=== PATIENT | male | born 1940 | race African-American/Black ===

== ENCOUNTER 2019-07-22 09:15 | Day surgery (SDC) | payer BC, MEDICARE ==
[2019-07-18 11:25] LABS: Basophils # (auto) 0 10 ^3/uL (0-0.2); Basophils % (auto) 0.7 % (0.0-2.0); Eosinophils # (auto) 0.1 10 ^3/uL (0-0.8); Eosinophils % (auto) 1.7 % (0.0-7.0); Hemoglobin 13.7 g/dL (13.5-17.5); Lymphocytes # (auto) 1.3 10 ^3/uL (0.4-5.4); Lymphocytes % (auto) 31.2 % (10.0-50.0); Mean Corpuscular Hemoglobin 31.2 pg (28.0-32.0); Mean Corpuscular Hgb Conc. 32.6 g/dL (32.0-36.0); Mean Corpuscular Volume 95.5 fL (80.0-100.0); Monocytes # (auto) 0.3 10 ^3/uL (0-1.3); Monocytes % (auto) 7.3 % (0.0-12.0); Neutrophils # (auto) 2.4 10 ^3/uL (1.6-8.6); Neutrophils % (auto) 59.1 % (37.0-80.0); Nucleated Red Blood Cells % 0.1 %; Platelet Count (auto) 186 10^3/uL (140-450); Red Cell Distribution Width 12.9 % (11.8-14.3); White Blood Cell 4.1 10^3/uL (4.4-10.8)
[2019-07-18 11:43] LABS: INR 3.03 (0.9-1.15)
[~2019-07-22] VITALS: Ht 175.3 cm; Wt 133.8 kg
[~2019-07-22 09:15] MED LIST: ACET-1156 PO; ATOR10TA52 PO; FURO40TA4 PO; LOSA25TA38 PO; SPIR25TA8 PO; WARF5TAB71 PO
[2019-07-22] MEDS ORDERED: SODIUM CHLORIDE LOCK 10 ML ONE (09:22)
[2019-07-22] MEDS ORDERED: diphenhdrAMINE HCL 50 MG/1 ML VL ONE (09:23)
[2019-07-22] MEDS ORDERED: LIDOCAINE HCL 2% TOP JELLY 5ML TOP ONE (10:51)
[2019-07-22] MEDS: fentaNYL CITRATE 100 MCG/2 ML VL ONE ×2 (10:58→11:02)
[2019-07-22] MEDS: MIDAZOLAM HCL 5 MG/ML-1ML VIAL ONE ×6 (10:58→11:11)
[2019-07-22 10:59] LABS: INR 1.44 (0.9-1.15); Partial Thromboplastin Time 27.1 sec (23.64-32.05)
[2019-07-22 12:09] VITALS: BP 156/95
== END 2019-07-22 12:40 | disposition home or self-care (01) ==
LOC: GI 09:15
PROVIDERS: ATTEND Internal Medicine Gastroenterology
DX: K62.89 Other specified diseases of anus and rectum (principal); K63.5 Polyp of colon; K60.2 Anal fissure, unspecified; J45.909 Unspecified asthma, uncomplicated; E66.9 Obesity, unspecified; Z68.43 Body mass index [BMI] 50.0-59.9, adult; Z98.890 Other specified postprocedural states
CPT/HCPCS: 36415; 45380; 85025; 85610; 85730; 88305; J2250; J3010; J7030; 99152; 99153

== ENCOUNTER 2019-08-10 17:21 | Inpatient (IN) | payer MEDICARE, BC ==
[~2019-08-10] VITALS: Ht 177.8 cm; Wt 132.8 kg
[2019-08-10 18:54] LABS: Basophils # (auto) 0 10 ^3/uL (0-0.2); Basophils % (auto) 0.8 % (0.0-2.0); Eosinophils # (auto) 0.1 10 ^3/uL (0-0.8); Eosinophils % (auto) 1.2 % (0.0-7.0); Hematocrit 44.7 % (41.0-53.0); Hemoglobin 14.7 g/dL (13.5-17.5); Lymphocytes # (auto) 1.6 10 ^3/uL (0.4-5.4); Lymphocytes % (auto) 34.6 % (10.0-50.0); Mean Corpuscular Hgb Conc. 32.8 g/dL (32.0-36.0); Mean Corpuscular Volume 94.4 fL (80.0-100.0); Monocytes # (auto) 0.4 10 ^3/uL (0-1.3); Monocytes % (auto) 7.6 % (0.0-12.0); Neutrophils # (auto) 2.7 10 ^3/uL (1.6-8.6); Neutrophils % (auto) 55.8 % (37.0-80.0); Nucleated Red Blood Cells % 0.1 %; Platelet Count (auto) 208 10^3/uL (140-450); Red Blood Cells 4.74 10^6/uL (4.5-5.90); Red Cell Distribution Width 12.6 % (11.8-14.3); White Blood Cell 4.8 10^3/uL (4.4-10.8)
[2019-08-10 18:59] LABS: Albumin 3.3 g/dL (3.4-5.0); Calcium 8.8 mg/dL (8.5-10.1)
[2019-08-10 19:09] LABS: BUN/Creatinine Ratio 7.7; Bilirubin, Total 1.4 mg/dL (0.2-1.0); Total Protein 8.1 g/dL (6.4-8.2)
[2019-08-10] MEDS ORDERED: KETOROLAC TROMETH 15 mg/ml 1ML VL IV ONE (22:30)
[2019-08-10] MEDS ORDERED: WITCH HAZEL-GLYCERIN PAD TOP PRN (22:45)
[2019-08-10] MEDS ORDERED: ONDANSETRON HCL 4 MG/2 ML VIAL IV PRN (22:45)
[2019-08-10] MEDS ORDERED: MORPHINE SULFATE 4 MG/ML SYR/VIAL IV PRN (22:45)
[2019-08-10 23:14] LABS: INR 3.99 (0.9-1.15); Partial Thromboplastin Time 35.9 sec (23.64-32.05)
[2019-08-10 23:50] VITALS: BP 136/73
[2019-08-10] MEDS: SODIUM CHLORIDE 0.9% 1,000 ML IV SCH (23:50)
[2019-08-11] MEDS: LIDOCAINE HCL 2% TOP JELLY 5ML TOP PRN (00:02)
[2019-08-11 00:10] VITALS: BP 136/73
[2019-08-11 04:50] VITALS: BP 112/71
[2019-08-11 05:53] LABS: Basophils # (auto) 0 10 ^3/uL (0-0.2); Basophils % (auto) 0.5 % (0.0-2.0); Eosinophils # (auto) 0.1 10 ^3/uL (0-0.8); Hematocrit 40.5 % (41.0-53.0); Hemoglobin 13.6 g/dL (13.5-17.5); Lymphocytes # (auto) 1.9 10 ^3/uL (0.4-5.4); Lymphocytes % (auto) 36.6 % (10.0-50.0); Mean Corpuscular Hemoglobin 31.8 pg (28.0-32.0); Mean Corpuscular Hgb Conc. 33.5 g/dL (32.0-36.0); Mean Corpuscular Volume 94.8 fL (80.0-100.0); Monocytes # (auto) 0.5 10 ^3/uL (0-1.3); Monocytes % (auto) 10.1 % (0.0-12.0); Neutrophils # (auto) 2.6 10 ^3/uL (1.6-8.6); Neutrophils % (auto) 50.8 % (37.0-80.0); Nucleated Red Blood Cells % 0.1 %; Platelet Count (auto) 176 10^3/uL (140-450); Red Blood Cells 4.28 10^6/uL (4.5-5.90); Red Cell Distribution Width 12.7 % (11.8-14.3); White Blood Cell 5.1 10^3/uL (4.4-10.8)
[2019-08-11 06:16] LABS: BUN/Creatinine Ratio 11.2; Calcium 8.3 mg/dL (8.5-10.1)
[2019-08-11 07:15] LABS: Urine Bacteria NONE SEEN /hpf (None Seen); Urine Blood Negative /uL (Negative); Urine Hyaline Cast MANY /lpf (0 - 2); Urine Mucus MODERATE (None Seen); Urine Specific Gravity 1.029 (1.001-1.035); Urine WBC 5 /hpf (0 - 3)
[2019-08-11 08:59] VITALS: BP 125/65
[2019-08-11] MEDS: PANTOPRAZOLE 40 MG/10 ML VIAL INJ IV SCH (09:52)
[2019-08-11] MEDS: NITROGLYCERIN 2% OINT 1GM PKG TD SCH ×3 (10:13→21:39)
[2019-08-11 13:00] VITALS: BP 86/58
[2019-08-11] MEDS: SODIUM CHLORIDE 0.9% 1,000 ML IV SCH (13:37)
[2019-08-11] MEDS ORDERED: CHOL100083 PO (16:25)
[2019-08-11] MEDS ORDERED: HYD25TP TOP (16:29)
[2019-08-11] MEDS ORDERED: LIDO5CRE14 EX (16:30)
[2019-08-11] MEDS ORDERED: MORPHINE SULF INJ 2 MG/ML SYRINGE 1ML IV PRN (16:45)
[2019-08-11 17:00] VITALS: BP 117/59
[2019-08-11 22:00] VITALS: BP 99/47
[2019-08-12] MEDS: SODIUM CHLORIDE 0.9% 1,000 ML IV SCH ×2 (01:31→13:03)
[2019-08-12 05:00] VITALS: BP 103/59
[2019-08-12] MEDS: NITROGLYCERIN 2% OINT 1GM PKG TD SCH ×4 (05:23→22:45)
[2019-08-12] MEDS: LIDOCAINE HCL 2% TOP JELLY 5ML TOP PRN (05:26)
[2019-08-12] MEDS ORDERED: HYDROmorphone HCL 2 MG/ML VL IV PRN ×2 (08:45→11:00)
[2019-08-12] MEDS ORDERED: D5W/SOD CHL 0.45%/KCL 20MEQ 1,000 ML IV ONE (08:45)
[2019-08-12 09:07] VITALS: BP 113/65
[2019-08-12] MEDS: PANTOPRAZOLE 40 MG/10 ML VIAL INJ IV SCH (09:26)
[2019-08-12] MEDS ORDERED: levoFLOXacin 500MG 100 ML IV SCH (10:00)
[2019-08-12] MEDS ORDERED: GADOTERIDOL 279.3mg/mL 20ml Vial IV ONE (12:12)
[2019-08-12 13:07] VITALS: BP 110/56
[2019-08-12] MEDS ORDERED: metroNIDAZOLE 500MG/100ML 100 ML IV SCH ×2 (14:00)
[2019-08-12] MEDS: levoFLOXacin 500MG 100 ML IV SCH (15:31)
[2019-08-12 17:00] VITALS: BP 108/52
[2019-08-12 20:00] VITALS: BP 121/68
[2019-08-12 21:47] VITALS: BP 121/68
[2019-08-12] MEDS: DOCUSATE SOD 100 MG CAP PO SCH (22:39)
[2019-08-13] MEDS: SODIUM CHLORIDE 0.9% 1,000 ML IV SCH ×2 (02:05→15:55)
[2019-08-13 05:10] VITALS: BP 125/60
[2019-08-13] MEDS: NITROGLYCERIN 2% OINT 1GM PKG TD SCH ×3 (05:54→22:23)
[2019-08-13 06:19] LABS: Basophils # (auto) 0 10 ^3/uL (0-0.2); Basophils % (auto) 0.4 % (0.0-2.0); Eosinophils # (auto) 0.1 10 ^3/uL (0-0.8); Eosinophils % (auto) 2.7 % (0.0-7.0); Hematocrit 38.1 % (41.0-53.0); Hemoglobin 12.5 g/dL (13.5-17.5); Lymphocytes # (auto) 1.6 10 ^3/uL (0.4-5.4); Lymphocytes % (auto) 33.4 % (10.0-50.0); Mean Corpuscular Hemoglobin 30.9 pg (28.0-32.0); Mean Corpuscular Hgb Conc. 32.7 g/dL (32.0-36.0); Mean Corpuscular Volume 94.6 fL (80.0-100.0); Monocytes # (auto) 0.5 10 ^3/uL (0-1.3); Neutrophils # (auto) 2.5 10 ^3/uL (1.6-8.6); Neutrophils % (auto) 52.5 % (37.0-80.0); Nucleated Red Blood Cells % 0.1 %; Platelet Count (auto) 176 10^3/uL (140-450); Red Blood Cells 4.03 10^6/uL (4.5-5.90); Red Cell Distribution Width 12.7 % (11.8-14.3); White Blood Cell 4.7 10^3/uL (4.4-10.8)
[2019-08-13 06:31] LABS: INR 3.38 (0.9-1.15); Partial Thromboplastin Time 36.2 sec (23.64-32.05)
[2019-08-13 06:36] LABS: Potassium 3.6 mmol/L (3.5-5.1)
[2019-08-13 06:41] LABS: BUN/Creatinine Ratio 9.3; Calcium 7.9 mg/dL (8.5-10.1)
[2019-08-13 08:29] VITALS: BP 136/65
[2019-08-13] MEDS: levoFLOXacin 500MG 100 ML IV SCH (11:02)
[2019-08-13] MEDS: DOCUSATE SOD 100 MG CAP PO SCH ×2 (11:02→22:23)
[2019-08-13] MEDS: PANTOPRAZOLE 40 MG/10 ML VIAL INJ IV SCH (11:03)
[2019-08-13 13:03] VITALS: BP 139/77
[2019-08-13] MEDS: LIDOCAINE HCL 2% TOP JELLY 5ML TOP SCH ×2 (14:00→22:23)
[2019-08-13 17:30] VITALS: BP 108/58
[2019-08-13 20:00] VITALS: BP 136/65
[2019-08-13 22:00] VITALS: BP 118/70
[2019-08-14] MEDS: SODIUM CHLORIDE 0.9% 1,000 ML IV SCH (04:45)
[2019-08-14 05:00] VITALS: BP 109/60
[2019-08-14] MEDS: NITROGLYCERIN 2% OINT 1GM PKG TD SCH ×2 (05:22→14:43)
[2019-08-14] MEDS: LIDOCAINE HCL 2% TOP JELLY 5ML TOP SCH ×2 (05:26→14:43)
[2019-08-14 09:13] VITALS: BP 109/59
[2019-08-14] MEDS: PANTOPRAZOLE 40 MG/10 ML VIAL INJ IV SCH (09:27)
[2019-08-14] MEDS: DOCUSATE SOD 100 MG CAP PO SCH (09:28)
[2019-08-14] MEDS: levoFLOXacin 500MG 100 ML IV SCH (09:28)
[2019-08-14 12:56] VITALS: BP 115/60
[2019-08-14 16:56] VITALS: BP 115/78
[2019-08-14 17:18] LABS: INR 2.51 (0.9-1.15)
== END 2019-08-14 18:15 | disposition home or self-care (01) | DRG 394 ==
LOC: ER 17:21 → WEST WING 17:22
PROVIDERS: ADMIT Nurse Practitioner; ATTEND Internal Medicine
DX: K64.9 Unspecified hemorrhoids (principal); D68.9 Coagulation defect, unspecified; Z68.41 Body mass index [BMI] 40.0-44.9, adult; K62.89 Other specified diseases of anus and rectum; M16.0 Bilateral primary osteoarthritis of hip; E66.9 Obesity, unspecified; I10 Essential (primary) hypertension; N40.0 Benign prostatic hyperplasia without lower urinary tract symptoms; Z86.711 Personal history of pulmonary embolism; Z86.718 Personal history of other venous thrombosis and embolism; Z88.0 Allergy status to penicillin
CPT/HCPCS: 36415; 73723; 74176; 80048; 80053; 81001; 84154; 85025; 85610; 85730; 87081; 87086; C9113; G0378; J1956; J2405

== ENCOUNTER 2019-08-18 11:57 | Inpatient (IN) | payer BC, MEDICARE, OTHER ==
[~2019-08-18] VITALS: Ht 175.3 cm; Wt 125.4 kg
[~2019-08-18 11:57] MED LIST changes: -ACET-1156 PO; +CHOL100083 PO; -FURO40TA4 PO; -LOSA25TA38 PO; -SPIR25TA8 PO
[2019-08-18] MEDS ORDERED: dilTIAZem 25 MG/5 ML VIAL IV ONE (12:15)
[2019-08-18] MEDS ORDERED: ASPirin 81 mg TAB PO ONE (12:15)
[2019-08-18] MEDS ORDERED: SODIUM CHLORIDE 0.9% 500 ML IV ONE (12:30)
[2019-08-18] MEDS ORDERED: DIGOXIN (250MCG/ML) 2 ML AMPULE IV ONE (13:00)
[2019-08-18 13:09] LABS: Basophils # (auto) 0 10 ^3/uL (0-0.2); Basophils % (auto) 0.5 % (0.0-2.0); Eosinophils # (auto) 0 10 ^3/uL (0-0.8); Eosinophils % (auto) 0.8 % (0.0-7.0); Hematocrit 40.2 % (41.0-53.0); Lymphocytes # (auto) 0.9 10 ^3/uL (0.4-5.4); Lymphocytes % (auto) 20.5 % (10.0-50.0); Mean Corpuscular Hemoglobin 30.9 pg (28.0-32.0); Mean Corpuscular Hgb Conc. 32.4 g/dL (32.0-36.0); Mean Corpuscular Volume 95.4 fL (80.0-100.0); Monocytes # (auto) 0.4 10 ^3/uL (0-1.3); Monocytes % (auto) 10.3 % (0.0-12.0); Neutrophils # (auto) 2.9 10 ^3/uL (1.6-8.6); Neutrophils % (auto) 67.9 % (37.0-80.0); Nucleated Red Blood Cells % 0.2 %; Platelet Count (auto) 187 10^3/uL (140-450); Red Blood Cells 4.22 10^6/uL (4.5-5.90); White Blood Cell 4.2 10^3/uL (4.4-10.8)
[2019-08-18 13:19] LABS: INR 2.58 (0.9-1.15); Partial Thromboplastin Time 31.2 sec (23.64-32.05)
[2019-08-18 13:29] LABS: Albumin 2.8 g/dL (3.4-5.0); Anion Gap 8 (5-15); Blood Urea Nitrogen 13 mg/dL (7-18); Calcium 8.7 mg/dL (8.5-10.1); Carbon Dioxide 24 mmol/L (21-32); Chloride 106 mmol/L (98-107); Glucose 136 mg/dL (74-106); Magnesium 1.7 mg/dL (1.6-2.6); Potassium 4.1 mmol/L (3.5-5.1); Sodium 138 mmol/L (136-145)
[2019-08-18 13:31] LABS: Alanine Aminotransferase 26 U/L (16-61); Aspartate Aminotransferase 25 U/L (15-37); BUN/Creatinine Ratio 6.4; GFR African American 41 mL/min; GFR Non-African American 34 mL/min
[2019-08-18 13:33] LABS: Bilirubin, Total 1.5 mg/dL (0.2-1.0); Total Protein 7.3 g/dL (6.4-8.2)
[2019-08-18 13:43] LABS: Alkaline Phosphatase 68 U/L (45-117)
[2019-08-18] MEDS ORDERED: NITROGLYCERIN 0.4 MG SL TAB SL PRN (13:45)
[2019-08-18] MEDS ORDERED: AMIODARONE HCL 150 MG in D5W 5% 100 ML IV ONE (13:45)
[2019-08-18] MEDS ORDERED: MORPHINE SULF INJ 2 MG/ML SYRINGE 1ML IV PRN (13:45)
[2019-08-18] MEDS ORDERED: AMIODARONE 450mg/250ml AE 250 ML IV SCH (13:50)
[2019-08-18] MEDS: AMIODARONE 450mg/250ml AE 250 ML IV SCH (14:06)
[2019-08-18] MEDS ORDERED: ONDANSETRON HCL 4 MG/2 ML VIAL IV PRN (15:30)
[2019-08-18] MEDS ORDERED: ACETAMINOPHEN 500 MG TAB PO PRN (15:30)
[2019-08-18] MEDS ORDERED: LACTULOSE 20Gm/30ML SOLN PO PRN (15:30)
[2019-08-18] MEDS ORDERED: traMADol HCL 50 MG TAB PO PRN (15:30)
[2019-08-18] MEDS ORDERED: WARFARIN SODIUM 2.5 MG TAB PO ONE ×2 (17:00→20:00)
[2019-08-18] MEDS ORDERED: MAGNESIUM SULFATE 1GM/100ML 100 ML IV ONE (17:30)
[2019-08-18] MEDS: FUROSEMIDE 100 MG/10ML VIAL IV ONE ×2 (17:59→18:21)
[2019-08-18 20:30] VITALS: BP 130/59
[2019-08-18 20:49] VITALS: BP 130/59
[2019-08-18] MEDS ORDERED: ENOXAPARIN SOD 150 MG/1 ML SYRINGE SC SCH (22:00)
[2019-08-18] MEDS ORDERED: AMIODARONE HCL 200 MG TAB PO ONE (22:00)
[2019-08-18] MEDS ORDERED: METOPROLOL TARTRATE 25 MG TAB PO SCH (22:00)
[2019-08-19] MEDS ORDERED: LOSA25TA38 PO (00:25)
[2019-08-19 04:46] VITALS: BP 121/53
[2019-08-19 05:51] LABS: INR 3.42 (0.9-1.15); Partial Thromboplastin Time 42.5 sec (23.64-32.05)
[2019-08-19 08:13] VITALS: BP 134/61
[2019-08-19] MEDS ORDERED: WITCH HAZEL-GLYCERIN PAD TOP PRN (09:30)
[2019-08-19 09:50] LABS: Basophils # (auto) 0 10 ^3/uL (0-0.2); Basophils % (auto) 0.4 % (0.0-2.0); Eosinophils # (auto) 0.1 10 ^3/uL (0-0.8); Eosinophils % (auto) 1.8 % (0.0-7.0); Hematocrit 38.4 % (41.0-53.0); Hemoglobin 12.4 g/dL (13.5-17.5); Lymphocytes # (auto) 1.1 10 ^3/uL (0.4-5.4); Lymphocytes % (auto) 18.5 % (10.0-50.0); Mean Corpuscular Hemoglobin 30.8 pg (28.0-32.0); Mean Corpuscular Hgb Conc. 32.3 g/dL (32.0-36.0); Mean Corpuscular Volume 95.2 fL (80.0-100.0); Monocytes # (auto) 0.7 10 ^3/uL (0-1.3); Neutrophils % (auto) 67.3 % (37.0-80.0); Nucleated Red Blood Cells % 0.2 %; Platelet Count (auto) 183 10^3/uL (140-450); Red Blood Cells 4.04 10^6/uL (4.5-5.90); Red Cell Distribution Width 13.2 % (11.8-14.3)
[2019-08-19 09:56] LABS: Alanine Aminotransferase 22 U/L (16-61); Albumin 2.5 g/dL (3.4-5.0); Anion Gap 11 (5-15); Aspartate Aminotransferase 23 U/L (15-37); BUN/Creatinine Ratio 5.1; Blood Urea Nitrogen 18 mg/dL (7-18); Carbon Dioxide 21 mmol/L (21-32); Chloride 108 mmol/L (98-107); GFR African American 22 mL/min; GFR Non-African American 18 mL/min; Glucose 110 mg/dL (74-106); Sodium 140 mmol/L (136-145)
[2019-08-19 09:58] LABS: Alkaline Phosphatase 63 U/L (45-117); Bilirubin, Total 1.3 mg/dL (0.2-1.0); Total Protein 6.6 g/dL (6.4-8.2)
[2019-08-19] MEDS ORDERED: levoFLOXacin 500 MG TAB PO SCH ×2 (10:00)
[2019-08-19] MEDS ORDERED: FUROSEMIDE 100 MG/10ML VIAL IV SCH (10:00)
[2019-08-19] MEDS: AMIODARONE HCL 200 MG TAB PO SCH (10:16)
[2019-08-19] MEDS: ASPirin 81 mg TAB PO SCH (10:17)
[2019-08-19] MEDS: METOPROLOL TARTRATE 25 MG TAB PO SCH ×2 (10:18→22:00)
[2019-08-19] MEDS: AMIODARONE 450mg/250ml AE 250 ML IV SCH (10:50)
[2019-08-19] MEDS: NITROGLYCERIN 2% OINT 1GM PKG TD SCH ×2 (11:28→22:14)
[2019-08-19] MEDS: LIDOCAINE VISCOUS 2% 15ML UD MT SCH ×2 (11:28→22:14)
[2019-08-19] MEDS ORDERED: SODIUM CHLORIDE 0.9% 1,000 ML IV SCH (11:30)
[2019-08-19] MEDS ORDERED: SODIUM CHLORIDE 0.9% 250 ML IV ONE (13:30)
[2019-08-19 13:59] VITALS: BP 117/61
[2019-08-19 16:29] VITALS: BP 128/62
[2019-08-19] MEDS: SODIUM CHLORIDE 0.9% 1,000 ML IV SCH ×2 (16:39→22:14)
[2019-08-19] MEDS: LACTULOSE 20Gm/30ML SOLN PO SCH ×2 (18:03→23:39)
[2019-08-19 22:00] VITALS: BP_SYST 125; BP_SYST 128; BP_DIAS 68; BP_DIAS 77
[2019-08-20 05:00] VITALS: BP 137/60
[2019-08-20] MEDS: LACTULOSE 20Gm/30ML SOLN PO SCH ×3 (05:34→17:24)
[2019-08-20 06:41] LABS: Basophils # (auto) 0 10 ^3/uL (0-0.2); Basophils % (auto) 0.5 % (0.0-2.0); Eosinophils # (auto) 0.1 10 ^3/uL (0-0.8); Eosinophils % (auto) 1.6 % (0.0-7.0); Hematocrit 38.4 % (41.0-53.0); Hemoglobin 12.6 g/dL (13.5-17.5); Lymphocytes # (auto) 0.8 10 ^3/uL (0.4-5.4); Lymphocytes % (auto) 16.6 % (10.0-50.0); Mean Corpuscular Hemoglobin 31.4 pg (28.0-32.0); Mean Corpuscular Hgb Conc. 32.8 g/dL (32.0-36.0); Mean Corpuscular Volume 95.7 fL (80.0-100.0); Monocytes # (auto) 0.6 10 ^3/uL (0-1.3); Monocytes % (auto) 12.5 % (0.0-12.0); Neutrophils # (auto) 3.5 10 ^3/uL (1.6-8.6); Neutrophils % (auto) 68.8 % (37.0-80.0); Platelet Count (auto) 165 10^3/uL (140-450); Red Blood Cells 4.01 10^6/uL (4.5-5.90); Red Cell Distribution Width 13.1 % (11.8-14.3); White Blood Cell 5.1 10^3/uL (4.4-10.8)
[2019-08-20 06:55] LABS: INR 3.29 (0.9-1.15); Partial Thromboplastin Time 33.3 sec (23.64-32.05)
[2019-08-20 06:57] LABS: BUN/Creatinine Ratio 5.1; Calcium 7.9 mg/dL (8.5-10.1); Potassium 4.2 mmol/L (3.5-5.1)
[2019-08-20 08:59] VITALS: BP 125/77
[2019-08-20] MEDS: SODIUM CHLORIDE 0.9% 1,000 ML IV SCH ×2 (09:18→16:15)
[2019-08-20] MEDS: NITROGLYCERIN 2% OINT 1GM PKG TD SCH ×2 (09:19→21:55)
[2019-08-20] MEDS: LIDOCAINE VISCOUS 2% 15ML UD MT SCH ×2 (09:19→21:53)
[2019-08-20] MEDS: METOPROLOL TARTRATE 25 MG TAB PO SCH ×2 (09:20→21:53)
[2019-08-20] MEDS: levoFLOXacin 250 MG TAB PO SCH (09:20)
[2019-08-20] MEDS: ASPirin 81 mg TAB PO SCH (09:21)
[2019-08-20] MEDS: AMIODARONE HCL 200 MG TAB PO SCH (09:21)
[2019-08-20 13:00] VITALS: BP 134/65
[2019-08-20 17:00] VITALS: BP 106/58
[2019-08-21] MEDS: SODIUM CHLORIDE 0.9% 1,000 ML IV SCH ×2 (00:27→08:22)
[2019-08-21 05:00] VITALS: BP 139/94
[2019-08-21] MEDS: LACTULOSE 20Gm/30ML SOLN PO SCH ×4 (06:32→16:35)
[2019-08-21 06:42] LABS: Albumin 2.5 g/dL (3.4-5.0); Calcium 7.8 mg/dL (8.5-10.1); Potassium 4.5 mmol/L (3.5-5.1)
[2019-08-21 06:43] LABS: INR 2.62 (0.9-1.15); Partial Thromboplastin Time 35.3 sec (23.64-32.05)
[2019-08-21 06:49] LABS: Bilirubin, Total 1.5 mg/dL (0.2-1.0); Total Protein 6.6 g/dL (6.4-8.2)
[2019-08-21 08:32] VITALS: BP 153/71
[2019-08-21] MEDS: AMIODARONE HCL 200 MG TAB PO SCH (10:00)
[2019-08-21] MEDS: NITROGLYCERIN 2% OINT 1GM PKG TD SCH ×2 (10:00→22:00)
[2019-08-21] MEDS: METOPROLOL TARTRATE 25 MG TAB PO SCH ×2 (10:00→22:55)
[2019-08-21] MEDS: LIDOCAINE VISCOUS 2% 15ML UD MT SCH ×2 (10:00→22:00)
[2019-08-21] MEDS ORDERED: BUMETANIDE 2.5mg/10ml (0.25 mg/ml) INJ IV ONE (10:00)
[2019-08-21] MEDS: levoFLOXacin 250 MG TAB PO SCH (10:19)
[2019-08-21] MEDS: ASPirin 81 mg TAB PO SCH (10:20)
[2019-08-21] MEDS: BUMETANIDE INJECTION 25 MG in GIVE UN-DILUTED 0 ML IV SCH (10:20)
[2019-08-21 12:30] VITALS: BP 146/58
[2019-08-21 17:00] VITALS: BP 164/90
[2019-08-21] MEDS ORDERED: WARFARIN SODIUM 1 MG TAB PO ONE (17:00)
[2019-08-21 22:00] VITALS: BP 124/65
[2019-08-22] VITALS (7 sets, daily range): BP systolic 130–141; BP diastolic 69–78
[2019-08-22] MEDS: LACTULOSE 20Gm/30ML SOLN PO SCH ×4 (06:29→18:00)
[2019-08-22 07:06] LABS: INR 2.12 (0.9-1.15); Partial Thromboplastin Time 33.8 sec (23.64-32.05)
[2019-08-22 07:14] LABS: Albumin 2.9 g/dL (3.4-5.0); Calcium 8.4 mg/dL (8.5-10.1); Potassium 4.4 mmol/L (3.5-5.1)
[2019-08-22 07:19] LABS: BUN/Creatinine Ratio 6.1; Bilirubin, Total 1.5 mg/dL (0.2-1.0); Total Protein 7.7 g/dL (6.4-8.2)
[2019-08-22] MEDS: NITROGLYCERIN 2% OINT 1GM PKG TD SCH ×2 (10:00→22:00)
[2019-08-22] MEDS: LIDOCAINE VISCOUS 2% 15ML UD MT SCH ×2 (10:00→22:00)
[2019-08-22] MEDS ORDERED: levoFLOXacin 500 MG TAB PO SCH (10:00)
[2019-08-22] MEDS: levoFLOXacin 250 MG TAB PO SCH (10:32)
[2019-08-22] MEDS: ASPirin 81 mg TAB PO SCH (10:32)
[2019-08-22] MEDS: BUMETANIDE INJECTION 25 MG in GIVE UN-DILUTED 0 ML IV SCH (10:33)
[2019-08-22] MEDS ORDERED: ADENOSINE 112 MG in GIVE UN-DILUTED 0 ML IV STA (10:59)
[2019-08-22] MEDS: METOPROLOL TARTRATE 25 MG TAB PO SCH ×2 (13:10→22:00)
[2019-08-22] MEDS: SODIUM CHLORIDE 0.9% 1,000 ML IV SCH (13:11)
[2019-08-22] MEDS ORDERED: TAMS1CAP25 PO (13:32)
[2019-08-22] MEDS ORDERED: WARFARIN SODIUM 2 MG TAB PO ONE (20:00)
[2019-08-23] VITALS (7 sets, daily range): BP systolic 104–130; BP diastolic 57–74
[2019-08-23] MEDS: SODIUM CHLORIDE 0.9% 1,000 ML IV SCH ×2 (00:35→13:56)
[2019-08-23] MEDS: LACTULOSE 20Gm/30ML SOLN PO SCH ×4 (06:25→18:00)
[2019-08-23 06:34] LABS: Albumin 2.8 g/dL (3.4-5.0); Calcium 8.4 mg/dL (8.5-10.1)
[2019-08-23 06:38] LABS: BUN/Creatinine Ratio 7.5; Bilirubin, Total 1.2 mg/dL (0.2-1.0); INR 2.24 (0.9-1.15); Total Protein 7.8 g/dL (6.4-8.2)
[2019-08-23] MEDS: ASPirin 81 mg TAB PO SCH (09:19)
[2019-08-23] MEDS: METOPROLOL TARTRATE 25 MG TAB PO SCH ×2 (09:20→22:00)
[2019-08-23] MEDS: LIDOCAINE VISCOUS 2% 15ML UD MT SCH (10:00)
[2019-08-23] MEDS: NITROGLYCERIN 2% OINT 1GM PKG TD SCH (10:00)
[2019-08-23] MEDS ORDERED: WARFARIN SODIUM 1 MG TAB PO ONE (17:00)
[2019-08-24] VITALS (7 sets, daily range): BP systolic 108–132; BP diastolic 50–70
[2019-08-24] MEDS: LIDOCAINE VISCOUS 2% 15ML UD MT SCH ×3 (00:35→21:58)
[2019-08-24] MEDS: NITROGLYCERIN 2% OINT 1GM PKG TD SCH ×3 (00:35→21:58)
[2019-08-24 06:00] LABS: Basophils # (auto) 0 10 ^3/uL (0-0.2); Basophils % (auto) 0.6 % (0.0-2.0); Eosinophils # (auto) 0.3 10 ^3/uL (0-0.8); Eosinophils % (auto) 4.5 % (0.0-7.0); Hematocrit 44.3 % (41.0-53.0); Hemoglobin 14.2 g/dL (13.5-17.5); Lymphocytes # (auto) 1.3 10 ^3/uL (0.4-5.4); Lymphocytes % (auto) 21.2 % (10.0-50.0); Mean Corpuscular Hemoglobin 31.4 pg (28.0-32.0); Mean Corpuscular Hgb Conc. 32.2 g/dL (32.0-36.0); Mean Corpuscular Volume 97.7 fL (80.0-100.0); Monocytes # (auto) 0.6 10 ^3/uL (0-1.3); Monocytes % (auto) 10.5 % (0.0-12.0); Neutrophils # (auto) 3.8 10 ^3/uL (1.6-8.6); Neutrophils % (auto) 63.2 % (37.0-80.0); Nucleated Red Blood Cells % 0.1 %; Platelet Count (auto) 149 10^3/uL (140-450); Red Blood Cells 4.53 10^6/uL (4.5-5.90); Red Cell Distribution Width 13.2 % (11.8-14.3)
[2019-08-24] MEDS: LACTULOSE 20Gm/30ML SOLN PO SCH ×4 (06:03→17:33)
[2019-08-24 08:38] LABS: INR 1.99 (0.9-1.15); Partial Thromboplastin Time 29.3 sec (23.64-32.05)
[2019-08-24] MEDS: ASPirin 81 mg TAB PO SCH (10:00)
[2019-08-24] MEDS: METOPROLOL TARTRATE 25 MG TAB PO SCH ×2 (10:00→21:58)
[2019-08-24] MEDS ORDERED: WARFARIN SODIUM 2 MG TAB PO ONE (17:00)
[2019-08-25 05:24] VITALS: BP 130/68
[2019-08-25] MEDS: LACTULOSE 20Gm/30ML SOLN PO SCH ×5 (06:00→23:23)
[2019-08-25 06:21] LABS: INR 1.75 (0.9-1.15); Partial Thromboplastin Time 30.3 sec (23.64-32.05)
[2019-08-25 06:29] LABS: BUN/Creatinine Ratio 10.5; Potassium 3.8 mmol/L (3.5-5.1)
[2019-08-25 06:30] LABS: Calcium 8.1 mg/dL (8.5-10.1)
[2019-08-25 08:48] VITALS: BP 117/63
[2019-08-25] MEDS: ASPirin 81 mg TAB PO SCH (09:37)
[2019-08-25] MEDS: METOPROLOL TARTRATE 25 MG TAB PO SCH ×2 (09:37→22:02)
[2019-08-25] MEDS: NITROGLYCERIN 2% OINT 1GM PKG TD SCH ×2 (10:00→22:40)
[2019-08-25] MEDS: LIDOCAINE VISCOUS 2% 15ML UD MT SCH ×2 (10:00→22:40)
[2019-08-25 13:09] VITALS: BP 129/89
[2019-08-25 16:49] VITALS: BP 129/68
[2019-08-25] MEDS ORDERED: WARFARIN SODIUM 1 MG TAB PO ONE (20:00)
[2019-08-25 23:19] VITALS: BP 125/68
[2019-08-26] MEDS: LACTULOSE 20Gm/30ML SOLN PO SCH (05:30)
[2019-08-26 05:45] VITALS: BP 116/67
[2019-08-26 09:00] VITALS: BP 104/59
[2019-08-26 09:46] LABS: INR 1.75 (0.9-1.15)
[2019-08-26 09:47] LABS: BUN/Creatinine Ratio 12.3; Calcium 8.2 mg/dL (8.5-10.1); Potassium 4.2 mmol/L (3.5-5.1)
[2019-08-26] MEDS: METOPROLOL TARTRATE 25 MG TAB PO SCH (10:00)
[2019-08-26] MEDS: ASPirin 81 mg TAB PO SCH (10:15)
[2019-08-26] MEDS: NITROGLYCERIN 2% OINT 1GM PKG TD SCH (10:17)
[2019-08-26] MEDS: LIDOCAINE VISCOUS 2% 15ML UD MT SCH (10:17)
[2019-08-26 10:58] VITALS: BP 104/59
[2019-08-26 13:00] VITALS: BP 112/66
== END 2019-08-26 12:20 | disposition home or self-care (01) | DRG 682 ==
LOC: ER 11:57 → EDBD 11:57 → OVERFLOW 11:58 → TELE-CENTR 20:04
PROVIDERS: ADMIT Internal Medicine; ATTEND Family Medicine
DX: N17.0 Acute kidney failure with tubular necrosis (principal); I50.43 Acute on chronic combined systolic (congestive) and diastolic (congestive) heart failure; I13.0 Hypertensive heart and chronic kidney disease with heart failure and stage 1 through stage 4 chronic kidney disease, or unspecified chronic kidney disease; Z68.41 Body mass index [BMI] 40.0-44.9, adult; D68.59 Other primary thrombophilia; I48.91 Unspecified atrial fibrillation; I95.9 Hypotension, unspecified; N18.3 Chronic kidney disease, stage 3 (moderate); D64.9 Anemia, unspecified; E66.01 Morbid (severe) obesity due to excess calories; R73.03 Prediabetes; N40.0 Benign prostatic hyperplasia without lower urinary tract symptoms; I87.8 Other specified disorders of veins; N41.9 Inflammatory disease of prostate, unspecified; N28.1 Cyst of kidney, acquired; E78.5 Hyperlipidemia, unspecified; G47.30 Sleep apnea, unspecified; Z79.01 Long term (current) use of anticoagulants; Z86.711 Personal history of pulmonary embolism; Z86.718 Personal history of other venous thrombosis and embolism; Z88.0 Allergy status to penicillin
CPT/HCPCS: 36415; 71045; 76775; 78452; 80048; 80053; 82550; 82565; 83735; 83880; 84443; 84484; 85025; 85610; 85652; 85730; 87081; 93005; 93017; 93306; 96361; 96365; 96367; 96375; 97116; 97163; 97530; 99291; G0378; J0153; J7060

== ENCOUNTER → 2019-08-31 | Outpatient (CLI) | payer OTHER, BC ==
[~2019-08-31] MED LIST changes: +LOSA25TA38 PO; +TAMS1CAP25 PO
[2019-08-31 10:09] LABS: INR 2.97 (0.9-1.15)
[2019-08-31 10:13] LABS: Albumin 3.3 g/dL (3.4-5.0); Calcium 8.8 mg/dL (8.5-10.1); Potassium 4.6 mmol/L (3.5-5.1)
[2019-08-31 10:17] LABS: BUN/Creatinine Ratio 14.2; Bilirubin, Total 1.7 mg/dL (0.2-1.0); Total Protein 8.3 g/dL (6.4-8.2)
== END | disposition home or self-care (01) ==
LOC: LAB 09:37
PROVIDERS: ATTEND Internal Medicine
DX: N18.4 Chronic kidney disease, stage 4 (severe) (principal); I48.91 Unspecified atrial fibrillation; I42.9 Cardiomyopathy, unspecified
CPT/HCPCS: 36415; 80053; 85610

== ENCOUNTER → 2019-09-05 | Outpatient (CLI) | payer BC, OTHER ==
[2019-09-05 12:11] LABS: Calcium 8.7 mg/dL (8.5-10.1); Potassium 4.5 mmol/L (3.5-5.1)
[2019-09-05 12:16] LABS: BUN/Creatinine Ratio 20.8; Total Protein 7.8 g/dL (6.4-8.2)
== END | disposition home or self-care (01) ==
LOC: LAB 10:46
PROVIDERS: ATTEND Internal Medicine
DX: N40.0 Benign prostatic hyperplasia without lower urinary tract symptoms (principal); N18.4 Chronic kidney disease, stage 4 (severe)
CPT/HCPCS: 36415; 80053

== ENCOUNTER → 2019-09-28 | Outpatient (CLI) | payer BC, OTHER ==
[2019-09-28 14:28] LABS: Potassium 4.2 mmol/L (3.5-5.1)
[2019-09-28 14:35] LABS: Albumin 2.9 g/dL (3.4-5.0); BUN/Creatinine Ratio 11.5; Bilirubin, Total 0.6 mg/dL (0.2-1.0); Calcium 8.3 mg/dL (8.5-10.1); Total Protein 7.5 g/dL (6.4-8.2)
== END | disposition home or self-care (01) ==
LOC: LAB 12:53
PROVIDERS: ATTEND Internal Medicine
DX: N18.3 Chronic kidney disease, stage 3 (moderate) (principal); I50.22 Chronic systolic (congestive) heart failure
CPT/HCPCS: 36415; 80053; 83880

== ENCOUNTER → 2019-11-09 | Outpatient (CLI) | payer BC ==
[2019-11-09 10:43] LABS: BUN/Creatinine Ratio 14.7; Calcium 8.6 mg/dL (8.5-10.1); Potassium 4.1 mmol/L (3.5-5.1)
== END | disposition home or self-care (01) ==
LOC: LAB 09:26
PROVIDERS: ATTEND Internal Medicine
DX: I10 Essential (primary) hypertension (principal); I50.22 Chronic systolic (congestive) heart failure
CPT/HCPCS: 36415; 80048

== ENCOUNTER 2020-03-05 18:06 | Inpatient (IN) | payer MEDICARE, BC ==
[~2020-03-05] VITALS: Ht 177.8 cm; Wt 138.1 kg
[2020-03-05] MEDS ORDERED: TIM05OS (18:23)
[2020-03-05] MEDS ORDERED: LATA0.0019 (18:23)
[2020-03-05] MEDS ORDERED: ACETAMINOPHEN 500 MG TAB PO ONE (18:30)
[2020-03-05 19:28] LABS: Basophils # (auto) 0 10 ^3/uL (0-0.2); Basophils % (auto) 0.8 % (0.0-2.0); Eosinophils # (auto) 0 10 ^3/uL (0-0.8); Hematocrit 35.7 % (41.0-53.0); Hemoglobin 11.9 g/dL (13.5-17.5); Lymphocytes # (auto) 0.9 10 ^3/uL (0.4-5.4); Lymphocytes % (auto) 23.5 % (10.0-50.0); Mean Corpuscular Hemoglobin 31.1 pg (28.0-32.0); Mean Corpuscular Hgb Conc. 33.4 g/dL (32.0-36.0); Mean Corpuscular Volume 93.1 fL (80.0-100.0); Monocytes # (auto) 0.5 10 ^3/uL (0-1.3); Monocytes % (auto) 13.5 % (0.0-12.0); Neutrophils # (auto) 2.3 10 ^3/uL (1.6-8.6); Neutrophils % (auto) 62.2 % (37.0-80.0); Platelet Count (auto) 139 10^3/uL (140-450); Red Blood Cells 3.83 10^6/uL (4.5-5.90); Red Cell Distribution Width 12.3 % (11.8-14.3); White Blood Cell 3.7 10^3/uL (4.4-10.8)
[2020-03-05 19:48] LABS: Albumin 2.8 g/dL (3.4-5.0); Anion Gap 5 (5-15); Blood Urea Nitrogen 17 mg/dL (7-18); Calcium 7.8 mg/dL (8.5-10.1); Carbon Dioxide 24 mmol/L (21-32); Chloride 107 mmol/L (98-107); Glucose 104 mg/dL (74-106); Potassium 3.8 mmol/L (3.5-5.1); Sodium 136 mmol/L (136-145)
[2020-03-05 19:54] LABS: Alanine Aminotransferase 25 U/L (16-61); Alkaline Phosphatase 68 U/L (45-117); Aspartate Aminotransferase 28 U/L (15-37); BUN/Creatinine Ratio 10.3; Bilirubin, Total 1.4 mg/dL (0.2-1.0); GFR African American 52 mL/min; GFR Non-African American 43 mL/min; Total Protein 7.8 g/dL (6.4-8.2)
[2020-03-05] MEDS ORDERED: DexAMETHasone SOD PHOS 10MG/1ML VIAL INJ IV ONE (20:30)
[2020-03-05] MEDS ORDERED: DOXYCYCLINE 100MG/250ML 250 ML IV ONE (20:30)
[2020-03-05 20:41] LABS: INR 1.4 (0.9-1.15); Partial Thromboplastin Time 29.9 sec (23.0-31.2)
[2020-03-05] MEDS ORDERED: ACETAMINOPHEN 325 MG TAB PO PRN (21:15)
[2020-03-05] MEDS ORDERED: NITROGLYCERIN 0.4 MG SL TAB SL PRN (21:15)
[2020-03-05] MEDS ORDERED: TEMAZEPAM 15 MG CAP PO PRN (21:15)
[2020-03-05] MEDS ORDERED: ONDANSETRON HCL 4 MG/2 ML VIAL IV PRN (21:15)
[2020-03-05] MEDS ORDERED: MORPHINE SULF INJ 2 MG/ML SYRINGE 1ML IV PRN (21:15)
[2020-03-05] MEDS ORDERED: WARFARIN SODIUM 5 MG TAB PO ONE (21:45)
[2020-03-05] MEDS: ATORVASTATIN 20 MG TAB PO SCH (21:58)
[2020-03-05] MEDS: ALBUTEROL SULF HFA 90MCG INH 200DOSE IN SCH (22:37)
[2020-03-05] MEDS: BUDESONIDE (INHALATION) 180 MCG IH IN SCH (22:37)
[2020-03-05 23:07] LABS: CRP High Sensitivity 6.8 mg/dL (< 0.3)
--- NOTE | 2020-03-05 23:19 | NUR ---
Telemetry admit from [facility] admitted to Telemetry unit after SBAR received. Patient oriented to FRITZ VAUGHAN RN primary RN, unit, room, bed, and unit policies regarding patient care and visiting hours. Patient now on continuous telemetry monitoring, tele box # 20 and telemetry reading on arrival to unit is Sinus Rhythm at 63BPM. Patient placed on bedside oxygen, weighed by bedscale and encouraged to call if they need something. All questions and concerns addressed, patient verbalized understanding.
[2020-03-06] VITALS (9 sets, daily range): BP systolic 110–165; BP diastolic 53–84
[2020-03-06 05:39] LABS: Basophils # (auto) 0 10 ^3/uL (0-0.2); Basophils % (auto) 0.2 % (0.0-2.0); Eosinophils # (auto) 0 10 ^3/uL (0-0.8); Hemoglobin 12.4 g/dL (13.5-17.5); Lymphocytes # (auto) 0.6 10 ^3/uL (0.4-5.4); Lymphocytes % (auto) 27.9 % (10.0-50.0); Mean Corpuscular Hemoglobin 31.2 pg (28.0-32.0); Mean Corpuscular Hgb Conc. 33.4 g/dL (32.0-36.0); Mean Corpuscular Volume 93.5 fL (80.0-100.0); Monocytes # (auto) 0.1 10 ^3/uL (0-1.3); Monocytes % (auto) 5.5 % (0.0-12.0); Neutrophils # (auto) 1.4 10 ^3/uL (1.6-8.6); Neutrophils % (auto) 66.4 % (37.0-80.0); Nucleated Red Blood Cells % 0.2 %; Platelet Count (auto) 125 10^3/uL (140-450); Red Blood Cells 3.96 10^6/uL (4.5-5.90); Red Cell Distribution Width 12.1 % (11.8-14.3)
--- NOTE | 2020-03-06 05:54 | NUR ---
Urine specimen sent to lab.
[2020-03-06 05:56] LABS: Potassium 4.1 mmol/L (3.5-5.1)
[2020-03-06 05:57] LABS: INR 1.38 (0.9-1.15)
[2020-03-06] MEDS: ALBUTEROL SULF HFA 90MCG INH 200DOSE IN SCH ×3 (06:00→21:30)
[2020-03-06] MEDS: BUDESONIDE (INHALATION) 180 MCG IH IN SCH ×2 (06:00→21:30)
[2020-03-06 06:03] LABS: Albumin 2.7 g/dL (3.4-5.0); BUN/Creatinine Ratio 12.6; Bilirubin, Total 1.1 mg/dL (0.2-1.0); Calcium 8.4 mg/dL (8.5-10.1); Total Protein 7.7 g/dL (6.4-8.2)
[2020-03-06 06:11] LABS: Urine Bacteria FEW /hpf (None Seen); Urine Blood 1+ /uL (Negative); Urine Specific Gravity 1.011 (1.001-1.035); Urine WBC 30 /hpf (0 - 3)
[2020-03-06] MEDS: ZINC SULFATE 220mg CAP or TAB PO SCH (09:49)
[2020-03-06] MEDS: PANTOPRAZOLE 40 MG TAB PO SCH (09:49)
[2020-03-06] MEDS: LISINOPRIL 5 MG TAB PO SCH (09:50)
[2020-03-06] MEDS: FUROSEMIDE 40 MG TAB PO SCH (09:50)
[2020-03-06] MEDS: METOPROLOL SUCCINATE XL 50 MG TAB PO SCH (09:50)
[2020-03-06] MEDS: CHOLECALCIFEROL (VITD3) 2,000 UNIT CAP PO SCH (09:50)
[2020-03-06] MEDS: ASCORBIC ACID 1,000 MG TAB PO SCH (09:51)
[2020-03-06] MEDS ORDERED: DOXYCYCLINE 100MG/250ML 250 ML IV SCH (10:00)
[2020-03-06] MEDS ORDERED: ENOXAPARIN SOD 40 MG/0.4 ML SYRINGE SC SCH (10:00)
[2020-03-06] MEDS ORDERED: DexAMETHasone SOD PHOS 10MG/1ML VIAL INJ IV SCH (10:00)
--- NOTE | 2020-03-06 11:45 | NUR ---
MD JAD NUNES AT BEDSIDE. INFORMING PATIENT OF CONVALESCENT PLASMA. INFORMED CONSENT OBTAINED. ALL QUESTIONS AND CONCERNS ADDRESSED AT THIS TIME
--- NOTE | 2020-03-06 14:07 | NUR ---
DANILO NUNES RE: PATIENT CURRENTLY REQUESTING TO START HOME MEDICATIONS. AWAITING CALL BACK
--- NOTE | 2020-03-06 14:08 | NUR ---
Opening Shift Note Assumed care of patient, awake and alert. No S/S of distress/SOB or pain. Instructed on POC and to call for assist PRN, will continue to monitor for changes Q1hr and PRN. Addendum: 03/06/20 at 1409 by VANDANA SAEED RN RN CORRECT TIME 0742
--- NOTE | 2020-03-06 14:11 | NUR ---
RETURNED PAGE PER IT IS OKAY TO RESUME HOME MEDICATION
[2020-03-06] MEDS ORDERED: WARFARIN SODIUM 5 MG TAB PO ONE (17:00)
[2020-03-06] MEDS: TAMSULOSIN HYDROCHLORIDE 0.4 MG CAP PO SCH (17:42)
--- NOTE | 2020-03-06 19:35 | NUR ---
OPENING SHIFT NOTE Assumed care of patient who is A&O x4. Currently on RA with no s/s of distress. denies SOB or pain at this time. PIV in left wrist is intact and patent. Flushed with 10ml NS. Dressing reinforced. Non-pitting edema noted to BLE. Patient reports this as chronic. POC discussed and patient verbalizes understanding. Bed in in low locked position with side rails up x2. Call light is within reach and patient encouraged to call for assistance when needed. Will continue to monitor for changes PRN.
--- NOTE | 2020-03-06 22:13 | NUR ---
PLASMA Transfusion of convalescent plasma started after verification by two RNs. See transfusion documentation for vitals.
[2020-03-06] MEDS: DOXYCYCLINE 100 MG TAB/CAP PO SCH (22:16)
[2020-03-06] MEDS: ATORVASTATIN 20 MG TAB PO SCH (22:16)
--- NOTE | 2020-03-06 23:32 | NUR ---
TRANSFUSION COMPLETE No adverse reactions noted. Patient tolerated well. Please refer to transfusion documentation for vital signs. Will continue to monitor.
[2020-03-07 00:32] VITALS: BP 147/71
--- NOTE | 2020-03-07 05:10 | NUR ---
SPECIMEN COLLECTION Urine sample collected and sent to lab via [facility] [employer] system.
[2020-03-07 05:43] VITALS: BP 139/72
[2020-03-07] MEDS: ALBUTEROL SULF HFA 90MCG INH 200DOSE IN SCH ×3 (06:22→21:07)
[2020-03-07] MEDS: BUDESONIDE (INHALATION) 180 MCG IH IN SCH ×2 (06:23→21:07)
[2020-03-07 06:33] LABS: Basophils # (auto) 0 10 ^3/uL (0-0.2); Basophils % (auto) 0.1 % (0.0-2.0); Eosinophils # (auto) 0 10 ^3/uL (0-0.8); Hematocrit 35.5 % (41.0-53.0); Hemoglobin 11.9 g/dL (13.5-17.5); Lymphocytes # (auto) 0.6 10 ^3/uL (0.4-5.4); Lymphocytes % (auto) 7.6 % (10.0-50.0); Mean Corpuscular Hemoglobin 30.8 pg (28.0-32.0); Mean Corpuscular Hgb Conc. 33.5 g/dL (32.0-36.0); Mean Corpuscular Volume 91.9 fL (80.0-100.0); Monocytes # (auto) 0.6 10 ^3/uL (0-1.3); Neutrophils # (auto) 7.2 10 ^3/uL (1.6-8.6); Neutrophils % (auto) 85.3 % (37.0-80.0); Nucleated Red Blood Cells % 0.1 %; Platelet Count (auto) 134 10^3/uL (140-450); Red Blood Cells 3.86 10^6/uL (4.5-5.90); Red Cell Distribution Width 12.3 % (11.8-14.3); White Blood Cell 8.4 10^3/uL (4.4-10.8)
[2020-03-07 06:49] LABS: INR 1.77 (0.9-1.15); Partial Thromboplastin Time 31.7 sec (23.0-31.2)
[2020-03-07 08:32] VITALS: BP 156/73
[2020-03-07] MEDS: PANTOPRAZOLE 40 MG TAB PO SCH (08:45)
[2020-03-07] MEDS: DOXYCYCLINE 100 MG TAB/CAP PO SCH ×2 (08:45→21:31)
[2020-03-07] MEDS: CHOLECALCIFEROL (VITD3) 2,000 UNIT CAP PO SCH (08:45)
[2020-03-07] MEDS: DexAMETHasone 4 MG TAB PO SCH (08:46)
[2020-03-07] MEDS: ZINC SULFATE 220mg CAP or TAB PO SCH (08:46)
[2020-03-07] MEDS: ASCORBIC ACID 1,000 MG TAB PO SCH (08:47)
[2020-03-07] MEDS: FUROSEMIDE 40 MG TAB PO SCH (08:47)
[2020-03-07] MEDS: METOPROLOL SUCCINATE XL 50 MG TAB PO SCH (08:47)
[2020-03-07] MEDS: LISINOPRIL 5 MG TAB PO SCH (08:47)
[2020-03-07] MEDS: FUROSEMIDE 40 MG/4 ML VIAL IV SCH ×2 (09:27→13:29)
[2020-03-07] MEDS ORDERED: levoFLOXacin 500MG 100 ML IV ONE (12:30)
[2020-03-07 13:00] VITALS: BP 104/58
[2020-03-07 16:46] VITALS: BP 107/49
[2020-03-07] MEDS ORDERED: WARFARIN SODIUM 5 MG TAB PO ONE (17:00)
[2020-03-07] MEDS: TAMSULOSIN HYDROCHLORIDE 0.4 MG CAP PO SCH (17:51)
--- NOTE | 2020-03-07 20:10 | NUR ---
Opening Shift Note Assumed care of patient, awake and alert, oriented x 4, follows direction. On room air with even and unlabored respirations. No S/S of distress, denies SOB or pain. Patient turns independently in bed. Bed in lowest locked position with side rails up x 2 and call light within reach. Instructed on POC and to call for assist PRN, will continue to monitor for changes Q1hr and PRN.
[2020-03-07] MEDS: ATORVASTATIN 20 MG TAB PO SCH (21:32)
[2020-03-07 22:00] VITALS: BP 115/60
[2020-03-08 05:00] VITALS: BP 156/66
[2020-03-08] MEDS: ALBUTEROL SULF HFA 90MCG INH 200DOSE IN SCH ×2 (06:22→13:25)
[2020-03-08] MEDS: BUDESONIDE (INHALATION) 180 MCG IH IN SCH (06:22)
--- NOTE | 2020-03-08 06:45 | NUR ---
Closing Note patient resting in bed on room air with even and unlabored respirations, no s/s of distress, patient denies SOB. Patient repositioned. Bed in lowest locked position with side rails up x 2 and call light within reach.
--- NOTE | 2020-03-08 07:52 | NUR ---
Opening Shift Note Assumed care of patient, awake and alert. No S/S of distress/SOB or pain. Instructed on POC and to call for assist PRN, will continue to monitor for changes Q1hr and PRN.
[2020-03-08 08:05] LABS: INR 2.41 (0.9-1.15)
[2020-03-08 08:59] VITALS: BP 115/65
[2020-03-08] MEDS ORDERED: LEVO-28 PO (09:51)
[2020-03-08] MEDS ORDERED: ZINC220T6 PO (09:51)
[2020-03-08] MEDS ORDERED: ALBUAER3 IN (09:51)
[2020-03-08] MEDS ORDERED: CHOL1CAP47 PO (09:51)
[2020-03-08] MEDS ORDERED: levoFLOXacin 500MG 100 ML IV SCH (10:00)
[2020-03-08 10:09] LABS: Calcium 8.5 mg/dL (8.5-10.1); Potassium 3.9 mmol/L (3.5-5.1)
[2020-03-08 10:12] LABS: BUN/Creatinine Ratio 15.8
[2020-03-08] MEDS: FUROSEMIDE 40 MG/4 ML VIAL IV SCH (11:15)
[2020-03-08] MEDS: DexAMETHasone 4 MG TAB PO SCH (11:16)
[2020-03-08] MEDS: ZINC SULFATE 220mg CAP or TAB PO SCH (11:16)
[2020-03-08] MEDS: PANTOPRAZOLE 40 MG TAB PO SCH (11:16)
[2020-03-08] MEDS: ASCORBIC ACID 1,000 MG TAB PO SCH (11:17)
[2020-03-08] MEDS: DOXYCYCLINE 100 MG TAB/CAP PO SCH (11:17)
[2020-03-08] MEDS: METOPROLOL SUCCINATE XL 50 MG TAB PO SCH (11:17)
[2020-03-08] MEDS: LISINOPRIL 5 MG TAB PO SCH (11:18)
[2020-03-08] MEDS: CHOLECALCIFEROL (VITD3) 2,000 UNIT CAP PO SCH (11:18)
[2020-03-08] MEDS ORDERED: ASCO10003 PO (12:57)
[2020-03-08 13:00] VITALS: BP 132/68
[2020-03-08 14:34] VITALS: BP 115/65
[2020-03-08] MEDS ORDERED: DEX4T PO (14:51)
--- NOTE | 2020-03-08 16:20 | NUR ---
Discharge instructions given as ordered. Encourage to follow up with PMD as instructed. All questions and concerns addressed. Patient verbalized understanding. Medication reconciliation form completed and copy given to patient. Home medications held in Pharmacy returned to patient, and needed vaccines given. IV removed with catheter intact, pressure dressing applied. Telemetry unit returned to ICU. Patient taken to vehicle via wheelchair with all personal belongings, accompanied by staff to family member. No distress noted at time of departure.
[2020-03-08] MEDS ORDERED: WARFARIN SODIUM 1 MG TAB PO ONE (17:00)
== END 2020-03-08 16:30 | disposition home or self-care (01) | DRG 177 ==
LOC: ER 18:07 → TELE 21:22 → TELE-EAST 22:59
PROVIDERS: ADMIT Nurse Practitioner; ATTEND Internal Medicine
PROC: XW13325 Transfusion of Convalescent Plasma (Nonautologous) into Peripheral Vein, Percutaneous Approach, New Technology Group 5 (ICD-10-PCS; principal; 2020-03-06)
DX: U07.1 COVID-19 (principal); J12.89 Other viral pneumonia; N17.0 Acute kidney failure with tubular necrosis; D68.9 Coagulation defect, unspecified; I48.20 Chronic atrial fibrillation, unspecified; E44.0 Moderate protein-calorie malnutrition; N39.0 Urinary tract infection, site not specified; I13.0 Hypertensive heart and chronic kidney disease with heart failure and stage 1 through stage 4 chronic kidney disease, or unspecified chronic kidney disease; I50.42 Chronic combined systolic (congestive) and diastolic (congestive) heart failure; Z68.41 Body mass index [BMI] 40.0-44.9, adult; F03.90 Unspecified dementia, unspecified severity, without behavioral disturbance, psychotic disturbance, mood disturbance, and anxiety; I89.0 Lymphedema, not elsewhere classified; E66.01 Morbid (severe) obesity due to excess calories; I25.10 Atherosclerotic heart disease of native coronary artery without angina pectoris; E78.5 Hyperlipidemia, unspecified; F41.9 Anxiety disorder, unspecified; N18.30 Chronic kidney disease, stage 3 unspecified; Z86.711 Personal history of pulmonary embolism; Z86.718 Personal history of other venous thrombosis and embolism
CPT/HCPCS: 36415; 36430; 71045; 80048; 80053; 81001; 82247; 82728; 83605; 83615; 83735; 83880; 84443; 84484; 85025; 85379; 85610; 85730; 86141; 86850; 86900; 86901; 87040; 87086; 87426; 93970; 94640; 96365; 96366; 96375; 97110; 97116; 97530; 99291; G0378; J1100; J1956; J3490

== ENCOUNTER → 2020-10-29 | Outpatient (CLI) | payer BC ==
[~2020-10-29] MED LIST changes: +ALBUAER3 IN; +ASCO10003 PO; +CHOL1CAP47 PO; +DEX4T PO; +LATA0.0019; +LEVO-28 PO; +TIM05OS; +ZINC220T6 PO
[2020-10-29 08:42] LABS: Basophils # (auto) 0 10 ^3/uL (0-0.2); Basophils % (auto) 0.8 % (0.0-2.0); Eosinophils # (auto) 0.1 10 ^3/uL (0-0.8); Eosinophils % (auto) 3.1 % (0.0-7.0); Hematocrit 40.8 % (41.0-53.0); Hemoglobin 13.6 g/dL (13.5-17.5); Lymphocytes # (auto) 1.6 10 ^3/uL (0.4-5.4); Lymphocytes % (auto) 35.7 % (10.0-50.0); Mean Corpuscular Hemoglobin 31.3 pg (28.0-32.0); Mean Corpuscular Hgb Conc. 33.3 g/dL (32.0-36.0); Mean Corpuscular Volume 93.9 fL (80.0-100.0); Monocytes # (auto) 0.4 10 ^3/uL (0-1.3); Monocytes % (auto) 8.7 % (0.0-12.0); Neutrophils # (auto) 2.3 10 ^3/uL (1.6-8.6); Neutrophils % (auto) 51.7 % (37.0-80.0); Nucleated Red Blood Cells % 0.1 %; Red Blood Cells 4.35 10^6/uL (4.5-5.90); Red Cell Distribution Width 13.4 % (11.8-14.3); White Blood Cell 4.4 10^3/uL (4.4-10.8)
[2020-10-29 09:05] LABS: Albumin 3.1 g/dL (3.4-5.0); Calcium 8.4 mg/dL (8.5-10.1); Potassium 4.3 mmol/L (3.5-5.1)
[2020-10-29 09:09] LABS: BUN/Creatinine Ratio 10.3; Bilirubin, Total 0.7 mg/dL (0.2-1.0)
== END | disposition home or self-care (01) ==
LOC: LAB 08:18
PROVIDERS: ATTEND Internal Medicine
DX: Z12.11 Encounter for screening for malignant neoplasm of colon (principal); N40.1 Benign prostatic hyperplasia with lower urinary tract symptoms; I42.0 Dilated cardiomyopathy
CPT/HCPCS: 36415; 80053; 83036; 83880; 84153; 84154; 85025; 85049

== ENCOUNTER → 2020-11-26 | Outpatient (CLI) | payer BC ==
[2020-11-26 09:57] LABS: Albumin 2.9 g/dL (3.4-5.0); Bilirubin, Direct 0.3 mg/dL (0-0.2); Bilirubin, Total 0.9 mg/dL (0.2-1.0); Total Protein 8.1 g/dL (6.4-8.2)
== END | disposition home or self-care (01) ==
LOC: LAB 09:06
PROVIDERS: ATTEND Internal Medicine
DX: N18.2 Chronic kidney disease, stage 2 (mild) (principal); E78.5 Hyperlipidemia, unspecified
CPT/HCPCS: 36415; 80076

== ENCOUNTER 2021-02-12 17:39 | Inpatient (IN) | payer MEDICARE, BC ==
[~2021-02-12] VITALS: Ht 177.8 cm; Wt 156.5 kg
[2021-02-12] MEDS ORDERED: ACETAMINOPHEN 500 MG TAB PO ONE (18:15)
[2021-02-12 21:57] LABS: BUN/Creatinine Ratio 9.5; Calcium 8.7 mg/dL (8.5-10.1); Potassium 4.1 mmol/L (3.5-5.1)
[2021-02-12 21:58] LABS: Basophils # (auto) 0 10 ^3/uL (0-0.2); Basophils % (auto) 0.2 % (0.0-2.0); Eosinophils # (auto) 0 10 ^3/uL (0-0.8); Hemoglobin 13.7 g/dL (13.5-17.5); Mean Corpuscular Hemoglobin 31.8 pg (28.0-32.0); Neutrophils # (auto) 16.3 10 ^3/uL (1.6-8.6); Red Blood Cells 4.31 10^6/uL (4.5-5.90)
[2021-02-12 22:07] LABS: Hematocrit 41.1 % (41.0-53.0); Lymphocytes # (auto) 0.7 10 ^3/uL (0.4-5.4); Lymphocytes % (auto) 4.1 % (10.0-50.0); Mean Corpuscular Hgb Conc. 33.3 g/dL (32.0-36.0); Mean Corpuscular Volume 95.5 fL (80.0-100.0); Monocytes # (auto) 0.6 10 ^3/uL (0-1.3); Monocytes % (auto) 3.2 % (0.0-12.0); Neutrophils % (auto) 92.5 % (37.0-80.0); Red Cell Distribution Width 12.8 % (11.8-14.3); White Blood Cell 17.7 10^3/uL (4.4-10.8)
[2021-02-12 22:21] LABS: Bilirubin, Total 2.3 mg/dL (0.2-1.0); Total Protein 8.3 g/dL (6.4-8.2)
[2021-02-12] MEDS ORDERED: ONDANSETRON HCL 4 MG/2 ML VIAL IV ONE (23:00)
[2021-02-12 23:16] LABS: Magnesium 2.1 mg/dL (1.6-2.6)
[2021-02-12 23:25] LABS: CRP High Sensitivity 8.2 mg/dL (< 0.3)
[2021-02-12 23:39] LABS: Lactic Acid w/Reflex 2.9 mmol/L (0.4-2.0)
[2021-02-13 00:03] LABS: Urine Bacteria NONE SEEN /hpf (None Seen); Urine Blood Negative /uL (Negative); Urine Specific Gravity 1.023 (1.001-1.035); Urine WBC 1 /hpf (0 - 3)
[2021-02-13] MEDS ORDERED: ENALAPRILAT 1.25 MG/ML-1ML VIAL IV ONE (01:00)
[2021-02-13] MEDS ORDERED: CLINDAMYCIN 900MG IV 50 ML IV ONE (01:00)
[2021-02-13] MEDS ORDERED: NITROGLYCERIN 0.4MG/HR TOPICAL PATCH TD ONE (01:00)
[2021-02-13] MEDS ORDERED: ACETAMINOPHEN 325 MG TAB PO ONE (04:30)
[2021-02-13] MEDS ORDERED: MORPHINE SULFATE INJECTION 2 MG/ML SYRG IV PRN (06:00)
[2021-02-13] MEDS ORDERED: ONDANSETRON HCL 4 MG/2 ML VIAL IV PRN (06:00)
[2021-02-13] MEDS ORDERED: HYDROcodone-ACET 5/325MG TAB PO PRN (06:00)
[2021-02-13] MEDS ORDERED: NITROGLYCERIN 0.4 MG SL TAB SL PRN (06:00)
[2021-02-13] MEDS ORDERED: TEMAZEPAM 15 MG CAP PO PRN (06:00)
[2021-02-13 08:11] LABS: INR 2.11 (0.9-1.15)
[2021-02-13] MEDS ORDERED: FUROSEMIDE 40 MG/4 ML VIAL IV ONE (08:30)
[2021-02-13] MEDS: CLINDAMYCIN 600MG IV 50 ML IV SCH ×2 (09:21→16:59)
[2021-02-13] MEDS: PANTOPRAZOLE 40 MG TAB PO SCH (11:17)
[2021-02-13] MEDS: LOSARTAN POTASSIUM 25 MG TAB PO SCH (11:17)
[2021-02-13] MEDS ORDERED: AZITHROMYCIN 500MG/ 250ML 250 ML IV ONE (14:15)
[2021-02-13] MEDS ORDERED: WARFARIN SODIUM 1 MG TAB PO ONE (17:00)
[2021-02-13] MEDS: FUROSEMIDE 20 MG/2 ML VIAL IV SCH (17:59)
[2021-02-13] MEDS: TAMSULOSIN HYDROCHLORIDE 0.4 MG CAP PO SCH (18:00)
[2021-02-13] MEDS: ACETAMINOPHEN 325 MG TAB PO PRN (18:00)
[2021-02-13 19:15] VITALS: BP 127/71
[2021-02-13 20:00] VITALS: BP 144/57
[2021-02-13 21:51] VITALS: BP 132/72
[2021-02-13] MEDS: ATORVASTATIN 20 MG TAB PO SCH (22:15)
[2021-02-14] MEDS: CLINDAMYCIN 600MG IV 50 ML IV SCH (02:10)
[2021-02-14] MEDS: ACETAMINOPHEN 325 MG TAB PO PRN ×2 (02:10→17:02)
[2021-02-14 05:11] VITALS: BP 120/61
[2021-02-14 05:34] LABS: Basophils # (auto) 0 10 ^3/uL (0-0.2); Basophils % (auto) 0.1 % (0.0-2.0); Eosinophils # (auto) 0 10 ^3/uL (0-0.8); Hematocrit 36.6 % (41.0-53.0); Hemoglobin 11.6 g/dL (13.5-17.5); Lymphocytes # (auto) 0.8 10 ^3/uL (0.4-5.4); Lymphocytes % (auto) 5.2 % (10.0-50.0); Mean Corpuscular Hemoglobin 30.8 pg (28.0-32.0); Mean Corpuscular Hgb Conc. 31.6 g/dL (32.0-36.0); Mean Corpuscular Volume 97.5 fL (80.0-100.0); Monocytes % (auto) 6.2 % (0.0-12.0); Neutrophils # (auto) 13.7 10 ^3/uL (1.6-8.6); Neutrophils % (auto) 88.5 % (37.0-80.0); Red Blood Cells 3.76 10^6/uL (4.5-5.90); Red Cell Distribution Width 13.3 % (11.8-14.3); White Blood Cell 15.5 10^3/uL (4.4-10.8)
[2021-02-14 05:47] LABS: INR 1.98 (0.9-1.15)
[2021-02-14 05:49] LABS: Calcium 7.8 mg/dL (8.5-10.1)
[2021-02-14 05:53] LABS: BUN/Creatinine Ratio 11.4; Bilirubin, Total 2.6 mg/dL (0.2-1.0); Total Protein 6.8 g/dL (6.4-8.2)
[2021-02-14] MEDS: FUROSEMIDE 20 MG/2 ML VIAL IV SCH ×2 (06:55→17:01)
[2021-02-14 09:00] VITALS: BP 110/54
[2021-02-14] MEDS ORDERED: AZITHROMYCIN 500MG/ 250ML 250 ML IV SCH (10:00)
[2021-02-14] MEDS ORDERED: levoFLOXacin 500MG 100 ML IV ONE (10:30)
[2021-02-14] MEDS: PANTOPRAZOLE 40 MG TAB PO SCH (10:59)
[2021-02-14] MEDS: LOSARTAN POTASSIUM 25 MG TAB PO SCH (11:00)
[2021-02-14 13:00] VITALS: BP 140/74
[2021-02-14 17:00] VITALS: BP 142/75
[2021-02-14] MEDS ORDERED: WARFARIN SODIUM 5 MG TAB PO ONE (17:00)
[2021-02-14] MEDS: TAMSULOSIN HYDROCHLORIDE 0.4 MG CAP PO SCH (17:02)
[2021-02-14 20:00] VITALS: BP 121/62
[2021-02-14] MEDS: ATORVASTATIN 20 MG TAB PO SCH (21:08)
[2021-02-14 22:00] VITALS: BP 121/62
[2021-02-15 05:00] VITALS: BP 141/54
[2021-02-15] MEDS: FUROSEMIDE 20 MG/2 ML VIAL IV SCH ×2 (05:53→17:42)
[2021-02-15 07:15] LABS: INR 1.92 (0.9-1.15)
[2021-02-15 09:00] VITALS: BP 108/65
[2021-02-15] MEDS: levoFLOXacin 500MG 100 ML IV SCH (10:02)
[2021-02-15] MEDS: PANTOPRAZOLE 40 MG TAB PO SCH (10:02)
[2021-02-15] MEDS: LOSARTAN POTASSIUM 25 MG TAB PO SCH (10:02)
[2021-02-15 13:00] VITALS: BP 116/80
[2021-02-15] MEDS ORDERED: AMIODARONE HCL 150 MG in D5W 5% 100 ML IV ONE (13:00)
[2021-02-15] MEDS ORDERED: AMIODARONE 450mg/250ml AE 250 ML IV SCH ×2 (13:15→19:15)
[2021-02-15] MEDS ORDERED: AMIODARONE HCL 200 MG TAB PO ONE (16:00)
[2021-02-15] MEDS ORDERED: METOPROLOL SUCCINATE XL 50 MG TAB PO ONE (16:00)
[2021-02-15 17:00] VITALS: BP 117/77
[2021-02-15] MEDS ORDERED: WARFARIN SODIUM 5 MG TAB PO ONE (17:00)
[2021-02-15] MEDS: TAMSULOSIN HYDROCHLORIDE 0.4 MG CAP PO SCH (17:39)
[2021-02-15] MEDS: ATORVASTATIN 20 MG TAB PO SCH (21:01)
[2021-02-15] MEDS: AMIODARONE HCL 200 MG TAB PO SCH (21:01)
[2021-02-15] MEDS: METOPROLOL SUCCINATE XL 50 MG TAB PO SCH (21:02)
[2021-02-15 22:00] VITALS: BP 125/68
[2021-02-15] MEDS: ACETAMINOPHEN 325 MG TAB PO PRN (23:02)
[2021-02-16 05:00] VITALS: BP 115/81
[2021-02-16 05:48] LABS: Basophils # (auto) 0 10 ^3/uL (0-0.2); Basophils % (auto) 0.1 % (0.0-2.0); Eosinophils # (auto) 0 10 ^3/uL (0-0.8); Eosinophils % (auto) 0.1 % (0.0-7.0); Hemoglobin 12.6 g/dL (13.5-17.5); Lymphocytes # (auto) 0.8 10 ^3/uL (0.4-5.4); Lymphocytes % (auto) 4.9 % (10.0-50.0); Mean Corpuscular Hemoglobin 31.5 pg (28.0-32.0); Mean Corpuscular Hgb Conc. 31.5 g/dL (32.0-36.0); Mean Corpuscular Volume 100.2 fL (80.0-100.0); Monocytes # (auto) 1.4 10 ^3/uL (0-1.3); Monocytes % (auto) 8.2 % (0.0-12.0); Neutrophils # (auto) 14.4 10 ^3/uL (1.6-8.6); Neutrophils % (auto) 86.7 % (37.0-80.0); Red Blood Cells 3.99 10^6/uL (4.5-5.90); Red Cell Distribution Width 13.1 % (11.8-14.3); White Blood Cell 16.6 10^3/uL (4.4-10.8)
[2021-02-16] MEDS: FUROSEMIDE 20 MG/2 ML VIAL IV SCH ×2 (05:55→17:17)
[2021-02-16 06:10] LABS: INR 2.28 (0.9-1.15)
[2021-02-16 09:00] VITALS: BP 127/72
[2021-02-16] MEDS: PANTOPRAZOLE 40 MG TAB PO SCH (09:49)
[2021-02-16] MEDS: AMIODARONE HCL 200 MG TAB PO SCH ×2 (09:49→22:59)
[2021-02-16] MEDS: LOSARTAN POTASSIUM 25 MG TAB PO SCH (09:51)
[2021-02-16] MEDS: levoFLOXacin 500MG 100 ML IV SCH (09:51)
[2021-02-16] MEDS: METOPROLOL SUCCINATE XL 50 MG TAB PO SCH ×2 (09:51→22:59)
[2021-02-16 13:25] VITALS: BP 129/95
[2021-02-16 17:00] VITALS: BP 121/67
[2021-02-16] MEDS ORDERED: WARFARIN SODIUM 2.5 MG TAB PO ONE (17:00)
[2021-02-16] MEDS: ACETAMINOPHEN 325 MG TAB PO PRN (17:17)
[2021-02-16] MEDS: TAMSULOSIN HYDROCHLORIDE 0.4 MG CAP PO SCH (17:18)
[2021-02-16 22:00] VITALS: BP 114/89
[2021-02-16] MEDS: ATORVASTATIN 20 MG TAB PO SCH (22:59)
[2021-02-16 23:50] LABS: Basophils # (auto) 0.1 10 ^3/uL (0-0.2); Basophils % (auto) 0.4 % (0.0-2.0); Eosinophils # (auto) 0 10 ^3/uL (0-0.8); Eosinophils % (auto) 0.1 % (0.0-7.0); Hematocrit 37.2 % (41.0-53.0); Lymphocytes # (auto) 0.7 10 ^3/uL (0.4-5.4); Lymphocytes % (auto) 3.2 % (10.0-50.0); Mean Corpuscular Hemoglobin 30.8 pg (28.0-32.0); Mean Corpuscular Hgb Conc. 32.4 g/dL (32.0-36.0); Mean Corpuscular Volume 95.1 fL (80.0-100.0); Monocytes # (auto) 1.2 10 ^3/uL (0-1.3); Monocytes % (auto) 5.7 % (0.0-12.0); Neutrophils # (auto) 18.9 10 ^3/uL (1.6-8.6); Neutrophils % (auto) 90.6 % (37.0-80.0); Red Blood Cells 3.91 10^6/uL (4.5-5.90); Red Cell Distribution Width 12.9 % (11.8-14.3); White Blood Cell 20.8 10^3/uL (4.4-10.8)
[2021-02-17 00:08] LABS: Albumin 1.6 g/dL (3.4-5.0); BUN/Creatinine Ratio 15.4; Calcium 8.6 mg/dL (8.5-10.1); Potassium 4.7 mmol/L (3.5-5.1)
[2021-02-17 00:11] LABS: Total Protein 7.1 g/dL (6.4-8.2)
[2021-02-17 05:30] VITALS: BP 140/70
[2021-02-17] MEDS: FUROSEMIDE 20 MG/2 ML VIAL IV SCH ×2 (06:34→17:47)
[2021-02-17 07:43] LABS: Basophils # (auto) 0.1 10 ^3/uL (0-0.2); Basophils % (auto) 0.3 % (0.0-2.0); Eosinophils # (auto) 0.1 10 ^3/uL (0-0.8); Eosinophils % (auto) 0.3 % (0.0-7.0); Hematocrit 34.9 % (41.0-53.0); Hemoglobin 11.5 g/dL (13.5-17.5); Lymphocytes # (auto) 0.8 10 ^3/uL (0.4-5.4); Lymphocytes % (auto) 3.9 % (10.0-50.0); Mean Corpuscular Hemoglobin 31.2 pg (28.0-32.0); Mean Corpuscular Hgb Conc. 32.8 g/dL (32.0-36.0); Mean Corpuscular Volume 95.1 fL (80.0-100.0); Monocytes # (auto) 1.4 10 ^3/uL (0-1.3); Monocytes % (auto) 6.9 % (0.0-12.0); Neutrophils # (auto) 17.4 10 ^3/uL (1.6-8.6); Neutrophils % (auto) 88.6 % (37.0-80.0); Nucleated Red Blood Cells % 0.1 %; Red Blood Cells 3.67 10^6/uL (4.5-5.90); Red Cell Distribution Width 12.9 % (11.8-14.3); White Blood Cell 19.6 10^3/uL (4.4-10.8)
[2021-02-17 08:00] LABS: INR 3.28 (0.9-1.15); Partial Thromboplastin Time 44.9 sec (23.6-33.0)
[2021-02-17 08:03] LABS: Albumin 1.4 g/dL (3.4-5.0); BUN/Creatinine Ratio 17.3; Calcium 8.2 mg/dL (8.5-10.1); Potassium 4.4 mmol/L (3.5-5.1)
[2021-02-17 08:06] LABS: Bilirubin, Total 1.6 mg/dL (0.2-1.0); Total Protein 6.6 g/dL (6.4-8.2)
[2021-02-17 09:00] VITALS: BP_SYST 107; BP_SYST 130; BP_DIAS 57; BP_DIAS 69
[2021-02-17] MEDS ORDERED: AZITHROMYCIN 500MG/ 250ML 250 ML IV SCH (10:00)
[2021-02-17] MEDS ORDERED: HEPARIN SODIUM (PORCINE) 5000 UNITS/ML 1ML VIAL SC ONE (10:00)
[2021-02-17] MEDS ORDERED: CHOLECALCIFEROL (VITD3) 2,000 UNIT CAP/TAB PO SCH (10:00)
[2021-02-17] MEDS ORDERED: ASCORBIC ACID 1,000 MG TAB PO SCH (10:00)
[2021-02-17] MEDS: LOSARTAN POTASSIUM 25 MG TAB PO SCH (10:00)
[2021-02-17] MEDS ORDERED: HEPARIN SODIUM (PORCINE) 5000 UNITS/ML 1ML VIAL SC SCH (10:00)
[2021-02-17] MEDS: ZINC SULFATE 220mg CAP or TAB PO SCH (10:14)
[2021-02-17] MEDS: AMIODARONE HCL 200 MG TAB PO SCH ×2 (10:14→21:56)
[2021-02-17] MEDS: levoFLOXacin 500MG 100 ML IV SCH (10:14)
[2021-02-17] MEDS: PANTOPRAZOLE 40 MG TAB PO SCH (10:15)
[2021-02-17] MEDS: METOPROLOL SUCCINATE XL 50 MG TAB PO SCH ×2 (10:17→21:57)
[2021-02-17] MEDS ORDERED: REMDESIVIR PER PHARMACY 0 ML IV SCH (12:00)
[2021-02-17] MEDS ORDERED: REMDESIVIR 200 MG in NS 210ml LOADING DOSE ADULT IV ONE (13:00)
[2021-02-17 13:10] VITALS: BP 103/61
[2021-02-17 17:00] VITALS: BP 112/70
[2021-02-17] MEDS: TAMSULOSIN HYDROCHLORIDE 0.4 MG CAP PO SCH (17:45)
[2021-02-17] MEDS: ATORVASTATIN 20 MG TAB PO SCH (21:56)
[2021-02-17 22:00] VITALS: BP 108/56
[2021-02-17] MEDS: BUDESONIDE (INHALATION) 180 MCG IH IN SCH (22:00)
[2021-02-18 04:49] VITALS: BP 118/58
[2021-02-18] MEDS: FUROSEMIDE 20 MG/2 ML VIAL IV SCH ×2 (05:36→19:10)
[2021-02-18] MEDS: BUDESONIDE (INHALATION) 180 MCG IH IN SCH ×3 (06:03→19:46)
[2021-02-18] MEDS: ALBUTEROL SULF HFA 90MCG INH 200DOSE IN PRN ×3 (06:03→19:46)
[2021-02-18 06:45] LABS: Basophils # (auto) 0 10 ^3/uL (0-0.2); Eosinophils # (auto) 0.1 10 ^3/uL (0-0.8); Eosinophils % (auto) 0.5 % (0.0-7.0); Hematocrit 32.7 % (41.0-53.0); Hemoglobin 10.9 g/dL (13.5-17.5); Lymphocytes # (auto) 0.8 10 ^3/uL (0.4-5.4); Lymphocytes % (auto) 4.9 % (10.0-50.0); Mean Corpuscular Hemoglobin 31.6 pg (28.0-32.0); Mean Corpuscular Hgb Conc. 33.2 g/dL (32.0-36.0); Mean Corpuscular Volume 95.2 fL (80.0-100.0); Monocytes # (auto) 1.6 10 ^3/uL (0-1.3); Monocytes % (auto) 9.5 % (0.0-12.0); Neutrophils # (auto) 14.6 10 ^3/uL (1.6-8.6); Neutrophils % (auto) 85.1 % (37.0-80.0); Nucleated Red Blood Cells % 0.1 %; Red Blood Cells 3.44 10^6/uL (4.5-5.90); Red Cell Distribution Width 12.9 % (11.8-14.3); White Blood Cell 17.1 10^3/uL (4.4-10.8)
[2021-02-18 06:53] LABS: INR 3.54 (0.9-1.15)
[2021-02-18 07:10] LABS: Potassium 3.9 mmol/L (3.5-5.1)
[2021-02-18 07:14] LABS: Creatinine, Urine 174 mg/dL (30.0-125.0); Protein, Urine 76.2 mg/dL (0.0-11.9); Sodium Urine < 5 mmol/L (40-220)
[2021-02-18 07:17] LABS: Urine Bacteria NONE SEEN /hpf (None Seen); Urine Blood Negative /uL (Negative); Urine Specific Gravity 1.024 (1.001-1.035); Urine WBC 4 /hpf (0 - 3)
[2021-02-18 07:21] LABS: Albumin 1.4 g/dL (3.4-5.0); BUN/Creatinine Ratio 22.3; Bilirubin, Total 1.3 mg/dL (0.2-1.0); Calcium 8.1 mg/dL (8.5-10.1); Total Protein 6.8 g/dL (6.4-8.2)
[2021-02-18] MEDS ORDERED: ASCORBIC ACID 1,000 MG TAB PO SCH (10:00)
[2021-02-18] MEDS: DexAMETHasone SOD PHOS 10MG/1ML VIAL INJ IV SCH (11:50)
[2021-02-18] MEDS: ZINC SULFATE 220mg CAP or TAB PO SCH (12:18)
[2021-02-18] MEDS: LOSARTAN POTASSIUM 25 MG TAB PO SCH (12:22)
[2021-02-18] MEDS: PANTOPRAZOLE 40 MG TAB PO SCH (12:23)
[2021-02-18] MEDS: METOPROLOL SUCCINATE XL 50 MG TAB PO SCH ×2 (12:23→21:30)
[2021-02-18] MEDS: CHOLECALCIFEROL (VITD3) 2,000 UNIT CAP/TAB PO SCH (12:25)
[2021-02-18] MEDS: AMIODARONE HCL 200 MG TAB PO SCH ×2 (12:26→21:30)
[2021-02-18] MEDS: levoFLOXacin 500MG 100 ML IV SCH (12:28)
[2021-02-18 13:00] VITALS: BP 120/58
[2021-02-18] MEDS: REMDESIVIR 100mg 100 MG in SODIUM CHL 0.9% 230 ML IV SCH (17:24)
[2021-02-18] MEDS: TAMSULOSIN HYDROCHLORIDE 0.4 MG CAP PO SCH (19:10)
[2021-02-18] MEDS: ATORVASTATIN 20 MG TAB PO SCH (21:29)
[2021-02-18 22:00] VITALS: BP 117/66
[2021-02-19 05:00] VITALS: BP 123/57
[2021-02-19] MEDS: FUROSEMIDE 20 MG/2 ML VIAL IV SCH ×2 (05:51→18:40)
[2021-02-19 06:14] LABS: Hematocrit 33.5 % (41.0-53.0); Hemoglobin 11.1 g/dL (13.5-17.5); Mean Corpuscular Hemoglobin 31.3 pg (28.0-32.0); Mean Corpuscular Hgb Conc. 33.1 g/dL (32.0-36.0); Mean Corpuscular Volume 94.4 fL (80.0-100.0); Red Blood Cells 3.55 10^6/uL (4.5-5.90); Red Cell Distribution Width 12.9 % (11.8-14.3); White Blood Cell 17.5 10^3/uL (4.4-10.8)
[2021-02-19 06:20] LABS: INR 3.37 (0.9-1.15)
[2021-02-19] MEDS: ALBUTEROL SULF HFA 90MCG INH 200DOSE IN PRN ×2 (06:23→21:28)
[2021-02-19] MEDS: BUDESONIDE (INHALATION) 180 MCG IH IN SCH ×2 (06:23→21:28)
[2021-02-19 06:27] LABS: Basophils % (manual) 0 (0.0-2.0); Blast Cells 0; Eosinophils % (manual) 0 (0-7); Promyelocytes % 0; Reactive Lymphocytes 0
[2021-02-19 06:30] LABS: Albumin 1.4 g/dL (3.4-5.0); Calcium 8.3 mg/dL (8.5-10.1); Potassium 4.2 mmol/L (3.5-5.1)
[2021-02-19 06:34] LABS: BUN/Creatinine Ratio 25.4; Bilirubin, Total 0.9 mg/dL (0.2-1.0)
[2021-02-19 09:00] VITALS: BP 118/48
[2021-02-19 09:22] LABS: Band Neutrophils % (manual) 7; Lymphocytes % (manual) 6 (10.0-50.0); Metamyelocytes % 1; Monocytes % (manual) 4 (0-12); Myelocytes % 2
[2021-02-19] MEDS: LOSARTAN POTASSIUM 25 MG TAB PO SCH (10:00)
[2021-02-19] MEDS: DexAMETHasone SOD PHOS 10MG/1ML VIAL INJ IV SCH (10:54)
[2021-02-19] MEDS: levoFLOXacin 500MG 100 ML IV SCH (10:54)
[2021-02-19] MEDS: ZINC SULFATE 220mg CAP or TAB PO SCH (10:54)
[2021-02-19] MEDS: CHOLECALCIFEROL (VITD3) 2,000 UNIT CAP/TAB PO SCH (10:55)
[2021-02-19] MEDS: ASCORBIC ACID 1,000 MG TAB PO SCH (10:55)
[2021-02-19] MEDS: PANTOPRAZOLE 40 MG TAB PO SCH (10:55)
[2021-02-19] MEDS ORDERED: FUROSEMIDE 20 MG/2 ML VIAL IV ONE (11:15)
[2021-02-19] MEDS ORDERED: DOCUSATE SOD 100 MG CAP PO ONE (11:15)
[2021-02-19 13:00] VITALS: BP 111/58
[2021-02-19] MEDS: REMDESIVIR 100mg 100 MG in SODIUM CHL 0.9% 230 ML IV SCH (15:19)
[2021-02-19 17:00] VITALS: BP 131/74
[2021-02-19] MEDS: TAMSULOSIN HYDROCHLORIDE 0.4 MG CAP PO SCH (18:40)
[2021-02-19 22:00] VITALS: BP 113/62
[2021-02-19] MEDS: ATORVASTATIN 20 MG TAB PO SCH (22:21)
[2021-02-19] MEDS: DOCUSATE SOD 100 MG CAP PO SCH (22:21)
[2021-02-19] MEDS: METOPROLOL TARTRATE 25 MG TAB PO SCH (22:22)
[2021-02-20 05:00] VITALS: BP 126/58
[2021-02-20] MEDS: FUROSEMIDE 20 MG/2 ML VIAL IV SCH ×2 (05:37→18:20)
[2021-02-20] MEDS: ALBUTEROL SULF HFA 90MCG INH 200DOSE IN PRN ×2 (07:01→20:10)
[2021-02-20] MEDS: BUDESONIDE (INHALATION) 180 MCG IH IN SCH ×2 (07:03→20:10)
[2021-02-20 09:00] VITALS: BP 140/68
[2021-02-20] MEDS: METOPROLOL TARTRATE 25 MG TAB PO SCH ×2 (10:00→22:45)
[2021-02-20 10:23] LABS: Basophils # (auto) 0.1 10 ^3/uL (0-0.2); Basophils % (auto) 0.2 % (0.0-2.0); Eosinophils # (auto) 0 10 ^3/uL (0-0.8); Eosinophils % (auto) 0.1 % (0.0-7.0); Lymphocytes # (auto) 0.7 10 ^3/uL (0.4-5.4); Lymphocytes % (auto) 2.8 % (10.0-50.0); Mean Corpuscular Hemoglobin 30.8 pg (28.0-32.0); Mean Corpuscular Hgb Conc. 32.4 g/dL (32.0-36.0); Mean Corpuscular Volume 95.1 fL (80.0-100.0); Monocytes % (auto) 4.2 % (0.0-12.0); Neutrophils # (auto) 21.7 10 ^3/uL (1.6-8.6); Neutrophils % (auto) 92.7 % (37.0-80.0); Nucleated Red Blood Cells % 0.6 %; Red Blood Cells 3.58 10^6/uL (4.5-5.90); Red Cell Distribution Width 12.7 % (11.8-14.3); White Blood Cell 23.4 10^3/uL (4.4-10.8)
[2021-02-20 10:37] LABS: Albumin 1.4 g/dL (3.4-5.0); Calcium 7.8 mg/dL (8.5-10.1); INR 2.6 (0.9-1.15); Partial Thromboplastin Time 37.3 sec (23.6-33.0); Potassium 4.3 mmol/L (3.5-5.1)
[2021-02-20 10:42] LABS: BUN/Creatinine Ratio 26.7; Bilirubin, Total 0.7 mg/dL (0.2-1.0); Total Protein 6.3 g/dL (6.4-8.2)
[2021-02-20] MEDS: DexAMETHasone SOD PHOS 4 MG/1ML SDV INJ IV SCH (10:49)
[2021-02-20] MEDS: ZINC SULFATE 220mg CAP or TAB PO SCH (10:50)
[2021-02-20] MEDS: DOCUSATE SOD 100 MG CAP PO SCH ×2 (10:50→22:43)
[2021-02-20] MEDS: levoFLOXacin 500MG 100 ML IV SCH (10:50)
[2021-02-20] MEDS: LOSARTAN POTASSIUM 25 MG TAB PO SCH (10:51)
[2021-02-20] MEDS: CHOLECALCIFEROL (VITD3) 2,000 UNIT CAP/TAB PO SCH (10:52)
[2021-02-20] MEDS: PANTOPRAZOLE 40 MG TAB PO SCH (10:52)
[2021-02-20] MEDS: ASCORBIC ACID 1,000 MG TAB PO SCH (10:52)
[2021-02-20] MEDS: DOXYCYCLINE 100MG/250ML 250 ML IV SCH ×3 (12:00→22:43)
[2021-02-20 13:00] VITALS: BP 95/63
[2021-02-20] MEDS: REMDESIVIR 100mg 100 MG in SODIUM CHL 0.9% 230 ML IV SCH (15:24)
[2021-02-20 17:00] VITALS: BP 138/75
[2021-02-20] MEDS ORDERED: WARFARIN SODIUM 1 MG TAB PO ONE (17:00)
[2021-02-20 17:41] VITALS: BP 125/69
[2021-02-20] MEDS: TAMSULOSIN HYDROCHLORIDE 0.4 MG CAP PO SCH (18:20)
[2021-02-20 22:00] VITALS: BP 115/60
[2021-02-20] MEDS: ATORVASTATIN 20 MG TAB PO SCH (22:43)
[2021-02-21 00:03] VITALS: BP 115/60
[2021-02-21 05:00] VITALS: BP 134/77
[2021-02-21] MEDS: FUROSEMIDE 20 MG/2 ML VIAL IV SCH ×2 (05:14→17:36)
[2021-02-21] MEDS: ALBUTEROL SULF HFA 90MCG INH 200DOSE IN PRN ×2 (06:35→22:39)
[2021-02-21] MEDS: BUDESONIDE (INHALATION) 180 MCG IH IN SCH ×2 (06:35→19:07)
[2021-02-21 07:01] LABS: INR 2.45 (0.9-1.15)
[2021-02-21 07:06] LABS: Potassium 4.4 mmol/L (3.5-5.1)
[2021-02-21 07:12] LABS: Basophils # (auto) 0 10 ^3/uL (0-0.2); Basophils % (auto) 0.1 % (0.0-2.0); Eosinophils # (auto) 0 10 ^3/uL (0-0.8); Hematocrit 34.1 % (41.0-53.0); Hemoglobin 11.2 g/dL (13.5-17.5); Lymphocytes # (auto) 0.7 10 ^3/uL (0.4-5.4); Lymphocytes % (auto) 3.8 % (10.0-50.0); Mean Corpuscular Hgb Conc. 32.8 g/dL (32.0-36.0); Mean Corpuscular Volume 94.7 fL (80.0-100.0); Monocytes # (auto) 0.7 10 ^3/uL (0-1.3); Monocytes % (auto) 3.8 % (0.0-12.0); Neutrophils # (auto) 16.5 10 ^3/uL (1.6-8.6); Neutrophils % (auto) 92.3 % (37.0-80.0); Red Cell Distribution Width 12.8 % (11.8-14.3); White Blood Cell 17.8 10^3/uL (4.4-10.8)
[2021-02-21 07:15] LABS: Albumin 1.5 g/dL (3.4-5.0); BUN/Creatinine Ratio 29.4; Bilirubin, Total 0.5 mg/dL (0.2-1.0)
[2021-02-21 09:00] VITALS: BP 128/79
[2021-02-21] MEDS: ZINC SULFATE 220mg CAP or TAB PO SCH (09:39)
[2021-02-21] MEDS: DOXYCYCLINE 100MG/250ML 250 ML IV SCH ×2 (09:39→22:15)
[2021-02-21] MEDS: DexAMETHasone SOD PHOS 4 MG/1ML SDV INJ IV SCH (09:39)
[2021-02-21] MEDS: LOSARTAN POTASSIUM 25 MG TAB PO SCH (09:40)
[2021-02-21] MEDS: DOCUSATE SOD 100 MG CAP PO SCH ×2 (09:40→22:13)
[2021-02-21] MEDS: METOPROLOL TARTRATE 25 MG TAB PO SCH ×2 (09:41→22:14)
[2021-02-21] MEDS: ASCORBIC ACID 1,000 MG TAB PO SCH (09:41)
[2021-02-21] MEDS: CHOLECALCIFEROL (VITD3) 2,000 UNIT CAP/TAB PO SCH (09:41)
[2021-02-21 13:00] VITALS: BP 111/76
[2021-02-21] MEDS: REMDESIVIR 100mg 100 MG in SODIUM CHL 0.9% 230 ML IV SCH (15:20)
[2021-02-21 16:55] VITALS: BP 133/68
[2021-02-21] MEDS ORDERED: WARFARIN SODIUM 2 MG TAB PO ONE (17:00)
[2021-02-21] MEDS: TAMSULOSIN HYDROCHLORIDE 0.4 MG CAP PO SCH (17:36)
[2021-02-21 22:00] VITALS: BP 112/60
[2021-02-21] MEDS: ATORVASTATIN 20 MG TAB PO SCH (22:38)
[2021-02-22 05:00] VITALS: BP 129/79
[2021-02-22 06:16] LABS: Basophils # (auto) 0 10 ^3/uL (0-0.2); Eosinophils # (auto) 0 10 ^3/uL (0-0.8); Eosinophils % (auto) 0.1 % (0.0-7.0); Hematocrit 33.1 % (41.0-53.0); Hemoglobin 11.1 g/dL (13.5-17.5); Lymphocytes # (auto) 0.8 10 ^3/uL (0.4-5.4); Mean Corpuscular Hemoglobin 31.8 pg (28.0-32.0); Mean Corpuscular Hgb Conc. 33.6 g/dL (32.0-36.0); Mean Corpuscular Volume 94.6 fL (80.0-100.0); Monocytes # (auto) 0.6 10 ^3/uL (0-1.3); Monocytes % (auto) 4.5 % (0.0-12.0); Neutrophils % (auto) 89.4 % (37.0-80.0); Red Cell Distribution Width 13.1 % (11.8-14.3); White Blood Cell 13.4 10^3/uL (4.4-10.8)
[2021-02-22 06:29] LABS: INR 2.58 (0.9-1.15); Partial Thromboplastin Time 35.6 sec (23.6-33.0)
[2021-02-22] MEDS: FUROSEMIDE 20 MG/2 ML VIAL IV SCH (06:30)
[2021-02-22 08:00] VITALS: BP 140/65
[2021-02-22 09:00] VITALS: BP 140/65
[2021-02-22] MEDS: DexAMETHasone SOD PHOS 4 MG/1ML SDV INJ IV SCH (09:29)
[2021-02-22] MEDS: DOXYCYCLINE 100MG/250ML 250 ML IV SCH (09:30)
[2021-02-22] MEDS: ZINC SULFATE 220mg CAP or TAB PO SCH (09:30)
[2021-02-22] MEDS: DOCUSATE SOD 100 MG CAP PO SCH (09:30)
[2021-02-22] MEDS: LOSARTAN POTASSIUM 25 MG TAB PO SCH (09:31)
[2021-02-22] MEDS: ASCORBIC ACID 1,000 MG TAB PO SCH (09:32)
[2021-02-22] MEDS: METOPROLOL TARTRATE 25 MG TAB PO SCH (09:32)
[2021-02-22] MEDS: CHOLECALCIFEROL (VITD3) 2,000 UNIT CAP/TAB PO SCH (09:32)
[2021-02-22] MEDS: ALBUTEROL SULF HFA 90MCG INH 200DOSE IN PRN (09:38)
[2021-02-22] MEDS: BUDESONIDE (INHALATION) 180 MCG IH IN SCH (09:38)
[2021-02-22 12:38] VITALS: BP 140/65
== END 2021-02-22 13:42 | disposition home or self-care (01) | DRG 871 ==
LOC: ER 17:39 → TELE 02-13 05:47 → TELE-WESTW 02-13 18:17 → WEST WING 02-14 23:11 → TELE-WESTW 02-16 18:32 → TELE-EAST 02-17 22:50
PROVIDERS: ADMIT Nurse Practitioner; ATTEND Internal Medicine
PROC: XW033E5 Introduction of Remdesivir Anti-infective into Peripheral Vein, Percutaneous Approach, New Technology Group 5 (ICD-10-PCS; principal; 2021-02-17)
DX: A41.89 Other specified sepsis (principal); J12.82 Pneumonia due to coronavirus disease 2019; J96.01 Acute respiratory failure with hypoxia; U07.1 COVID-19; I50.43 Acute on chronic combined systolic (congestive) and diastolic (congestive) heart failure; L03.115 Cellulitis of right lower limb; L03.116 Cellulitis of left lower limb; I48.20 Chronic atrial fibrillation, unspecified; I13.0 Hypertensive heart and chronic kidney disease with heart failure and stage 1 through stage 4 chronic kidney disease, or unspecified chronic kidney disease; N17.9 Acute kidney failure, unspecified; N39.0 Urinary tract infection, site not specified; J98.11 Atelectasis; D68.69 Other thrombophilia; E44.0 Moderate protein-calorie malnutrition; Z68.42 Body mass index [BMI] 45.0-49.9, adult; F03.90 Unspecified dementia, unspecified severity, without behavioral disturbance, psychotic disturbance, mood disturbance, and anxiety; E66.01 Morbid (severe) obesity due to excess calories; I89.0 Lymphedema, not elsewhere classified; N18.31 Chronic kidney disease, stage 3a; N40.0 Benign prostatic hyperplasia without lower urinary tract symptoms; R00.1 Bradycardia, unspecified; R74.01 Elevation of levels of liver transaminase levels; E78.00 Pure hypercholesterolemia, unspecified; Z79.899 Other long term (current) drug therapy; Z88.0 Allergy status to penicillin
CPT/HCPCS: 36415; 36600; 71045; 76775; 78582; 80053; 81001; 82570; 82805; 83605; 83735; 83880; 84156; 84300; 84484; 85007; 85025; 85027; 85379; 85610; 85730; 86141; 87040; 87086; 87426; 93005; 93306; 93970; 94640; 96365; 96375; 97110; 97116; 97163; 97530; G0378; J1100; J1956; J2405; J3490; J7060